=== PATIENT | female | born 1960 | race Caucasian/White ===

== ENCOUNTER → 2017-01-11 | Outpatient (CLI) | payer MEDICARE ==
[2017-01-11 10:37] VITALS: BP 130/72; PULSE 78; RESP 16; TEMP 98.1; BMI 40.1
[2017-01-11 11:58] LABS: CHCM 32.4; HCT 40.4 % (34.0-46.0); HDW 2.55; HGB 13.1 gm/dL (11.4-16.0); MCHC 32.3 g/dL (31.0-37.0); MCV 89.9 fL (80.0-100.0); Mean Platelet Volume 7.7; RDW 13.7 % (11.5-15.5)
[2017-01-11 12:07] LABS: ALT 30 U/L (9-52); AST 24 U/L (14-36); Alkaline Phosphatase 107 U/L (38-126); Anion Gap 12 mmol/L; Blood Urea Nitrogen 16 mg/dL (7-17); Calcium 9.5 mg/dL (8.4-10.2); Carbon Dioxide 28 mmol/L (22-30); Chloride 101 mmol/L (98-107); Glucose 95 mg/dL (74-99); Iron 61 ug/dL (37-170); Non-African American GFR(MDRD) >60 (>60 ml/min/1.73 sqM); Potassium 4.5 mmol/L (3.5-5.1); Sodium 141 mmol/L (137-145); Total Bilirubin 0.3 mg/dL (0.2-1.3); Total Protein 7.6 g/dL (6.3-8.2)
[2017-01-11 12:16] LABS: Total Iron Binding Capacity 346 ug/dL (265-497)
[2017-01-11 13:16] LABS: Vitamin B12 551 pg/mL (239-931)
[2017-01-11 13:21] LABS: Hemoglobin A1C 5.1 % (4.2-6.1)
--- NOTE | 2017-02-26 07:52 | P.PN ---
Progress Note - Text DATE OF SERVICE: 01/11/2017 CHIEF COMPLAINT: Bariatric assessment. HISTORY OF PRESENT ILLNESS: Eneida Cruz is a 56-year-old female with history of an adjustable gastric band. Since her band placement, she has had chronic troubles with atypical chest pain including severe gastroesophageal reflux disease. She also still has obstructive sleep apnea. Given the severity of her symptoms including gastroesophageal reflux disease, she is on toxic doses of Zantac including Prilosec. She presents with symptoms highly suspicious for slippage from adjustable gastric band. Now she presents for further evaluation and management. At her height of 5 foot 2 inches, her ideal body weight is 135 pounds. Her initial weight was 240 pounds. Today she comes in weighing 219 pounds. Maintained weight loss is 21 pounds. Percent excess weight loss is 20%. She has lost 4 pounds in 6 months. PAST MEDICAL HISTORY: 1. Morbid obesity. 2. Gastroesophageal reflux disease. 3. Hypertensive cardiomyopathy. 4. Chronic pain syndrome. 5. Asthma. 6. Hyperlipidemia. 7. Dyslipidemia. 8. Rheumatoid arthritis. 9. Anxiety. 10. Neuropathy. 11. Urinary urgency. 12. Congestive heart failure. 13. Depression. 14. Hypothyroidism. 15. Fibromyalgia. 16. History of acute respiratory distress syndrome. 17. History of avascular necrosis of the joints. 18. History of coronary artery disease. 19. Variant of angina. PAST SURGICAL HISTORY: 1. Appendectomy. 2. Back surgery. 3. Adjustable gastric band placement. 4. section. 5. Cholecystectomy. 6. Cardiac catheterization. 7. Hysterectomy. 8. Joint replacement. 9. Tonsillectomy. 10. Laminectomy. 11. Hemorrhoidectomy. 12. Total abdominal hysterectomy. 13. History of lipoma excision. 14. History of feeding tube placement. 15. Prior history of tracheostomy. 16. Left hip replacement. 17. Bilateral knee replacement. MEDICATIONS: 1. Vitamin E. 2. Ditropan XL. 3. Omeprazole. 4. Nitroglycerin. 5. Multivitamin. 6. Lopressor. 7. Synthroid. 8. Imdur. 9. Hydrochlorothiazide. 10. Garlic. 11. Prozac. 12. Cortisone. 13. Vitamin D. 14. Aspirin. 15. Ventolin inhaler. 16. Humira pen. 17. Xanax. ALLERGIES: 1. METHOTREXATE. 2. THIMEROSAL. REVIEW OF SYSTEMS: CONSTITUTIONAL: Present weight loss of 21 pounds. Highest weight of 240 pounds. Present weight of 219 pounds. [place] body weight of 135 pounds. Percent excess weight loss of 20%. She has lost 4 pounds in 6 months. Body mass index reduced from 44 down to 40.1. Total BMI point reduction of 4. GASTROINTESTINAL: Severe gastroesophageal reflux disease including epigastric abdominal pain. CARDIAC: She has had severe chest pain for which work-up has demonstrated negative cardiac, however, complications from adjustable gastric band was described from her operations controller. HEENT: No active problems with vision or hearing. She has mild dysphagia. ENDOCRINE: History of hypothyroidism. No reports of active diabetes type 1 or 2. RESPIRATORY: Prior history of ARDS. Also, prior history tracheostomy. No recent pneumonia. She does have asthma. MUSCULOSKELETAL: Has diffuse osteoarthritis, including multiple joint replacements including of the hip and knees. NEURO: No reports of recent stroke or seizure disorder. She does have chronic pain including from fibromyalgia. PSYCH: History of depression without active suicidal ideation. HEMATOLOGIC: No active blood thinners. No recent DVTs. PHYSICAL EXAM: VITAL SIGNS: 98.1, 78, 16, 130/72; 5 foot 2, 219 pounds. Body mass index of 40.1. ABDOMEN: Soft, tenderness along the epigastrium. No signs of cellulitis. GENERAL: Well-developed female in no acute distress. HEENT: No sclerae icterus. Extraocular movements grossly intact. Moist buccal mucosa. NECK: Supple without adenopathy. CHEST: Nonlabored respirations with equal bilateral excursions. CARDIOVASCULAR: Regular rate and rhythm. MUSCULOSKELETAL: No clubbing, cyanosis or present edema. NEURO: No focal or lateralizing signs. Cranial nerves 2 through 12 grossly within normal limits. PSYCH: Appropriate affect. Alert and oriented to person, place, and time. ASSESSMENT: 1. Morbid obesity due to excess caloric intake. 2. Body mass index reduced from 44 down to 40.1. 3. History of adjustable gastric band now with complications. 4. Risks of gastric band slippage with adjustable gastric band. 5. Worsening epigastric and left upper quadrant abdominal pain. 6. Severe chronic gastroesophageal reflux disease, exacerbated with adjustable gastric band. 7. Atypical chest pain secondary to complications from adjustable gastric band. 8. Congestive heart failure with unknown diastolic dysfunction. 9. Fibromyalgia. 10. Osteoarthritis of the bilateral knees secondary to morbid obesity. 11. Osteoarthritis of the hips. secondary to morbid obesity. 12. Rheumatoid arthritis. 13. Dyslipidemia. 14. Depression without suicidal ideation. 15. Left upper abdominal pain at port site. 16. Epigastric abdominal pain. 17. Complications from adjustable gastric band. PLAN: 1. Her symptoms are progressive with adjustable gastric band with findings and clinical suspicion of gastric slippage. Recommend removal of adjustable gastric band. 2. Deep venous thrombosis prophylaxis. 3. Antibiotic prophylaxis. 4. She has obtained cardiac risk assessment prior to surgical intervention. 5. With the severity of reflux disease, will reevaluate after band removal for which she may benefit from potential gastric bypass to follow. 6. Recommend bariatric metabolic panel. ADDENDUM: Bariatric metabolic panel was reviewed with hemoglobin normal at 13.1. Hemoglobin A1c was normal at 5.1. TSH was low at 0.152. Recommend close supervision of the thyroid level, otherwise, will proceed with removal of adjustable gastric band and all components.
== END | disposition home or self-care (01) ==
LOC: BARWHC3 09:29
PROVIDERS: ATTEND Surgery Plastic and Reconstructive Surgery
DX: Z01.818 Encounter for other preprocedural examination (principal); E89.1 Postprocedural hypoinsulinemia; D50.8 Other iron deficiency anemias; E44.0 Moderate protein-calorie malnutrition; E55.9 Vitamin D deficiency, unspecified; Z68.41 Body mass index [BMI] 40.0-44.9, adult; E11.9 Type 2 diabetes mellitus without complications
CPT/HCPCS: 84425; 80053; 82607; 82728; 83036; 82746; 83540; 83550; 84443; 85027; 82306; 36415; G0463; 99211

== ENCOUNTER 2017-01-24 09:37 | Inpatient (IN) | payer MEDICARE ==
[2017-01-22 08:42] VITALS: BMI 39.9
--- NOTE | 2017-01-24 07:51 | P.GSHP ---
History of Present Illness H&P Date: 01/24/17 DATE OF SERVICE: 01/24/2017 CHIEF COMPLAINT: Bariatric assessment. HISTORY OF PRESENT ILLNESS: Eneida Cruz is a 56-year-old female who has an adjustable gastric band for several years. She has had chronic abdominal pain from her adjustable gastric band including gastroesophageal reflux disease as well as intractable nausea and vomiting. She has clinical features consistent with gastric band slippage. She now presents with more troubles with swallowing. PAST MEDICAL HISTORY: 1. Morbid obesity. 2. Gastroesophageal reflux disease. 3. Hypertensive cardiomyopathy. 4. Chronic pain syndrome. 5. Asthma. 6. Hyperlipidemia. 7. Dyslipidemia. 8. Rheumatoid arthritis. 9. Anxiety. 10. Neuropathy. 11. Urinary urgency. 12. Congestive heart failure. 13. Depression. 14. Hypothyroidism. 15. Fibromyalgia. 16. History of acute respiratory distress syndrome. 17. History of avascular necrosis of the joints. 18. History of coronary artery disease. 19. Variant of angina. PAST SURGICAL HISTORY: 1. Appendectomy. 2. Back surgery. 3. Adjustable gastric band placement. 4. section. 5. Cholecystectomy. 6. Cardiac catheterization. 7. Hysterectomy. 8. Joint replacement. 9. Tonsillectomy. 10. Laminectomy. 11. Hemorrhoidectomy. 12. Total abdominal hysterectomy. 13. History of lipoma excision. 14. History of feeding tube placement. 15. Prior history of tracheostomy. 16. Left hip replacement. 17. Bilateral knee replacement. MEDICATIONS: 1. Vitamin E. 2. Ditropan XL. 3. Omeprazole. 4. Nitrostat. 5. Multivitamin. 6. MS Contin. 7. Lopressor. 8. Lidoderm. 9. Synthroid. 10. Imdur. 11. Hydrochlorothiazide. 12. Garlic. 13. Neurontin. 14. Prozac. 15. Vitamin D. 16. Cardizem. 17. Aspirin. 18. ( ) 19. Ventolin inhaler. 20. Humira. 21. Xanax. 22. Zantac. 23. Omeprazole. ALLERGIES: None reported. SOCIAL HISTORY: No active tobacco use. She is a former tobacco user. FAMILY HISTORY: Pertinent for congestive heart failure including hyperlipidemia and hypertension. REVIEW OF SYSTEMS: GASTROINTESTINAL: Severe gastroesophageal reflux disease including epigastric abdominal pain. CONSTITUTIONAL: Highest weight of 240 pounds. 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 HEENT: No active problems with vision or hearing. She has mild dysphagia. ENDOCRINE: History of hypothyroidism. No reports of active diabetes type 1 or 2. RESPIRATORY: Prior history of ARDS. Also, prior history tracheostomy. No recent pneumonia. She does have asthma. MUSCULOSKELETAL: Has diffuse osteoarthritis, including multiple joint replacements including of the hip and knees. NEURO: No reports of recent stroke or seizure disorder. She does have chronic pain including from fibromyalgia. PSYCH: History of depression without active suicidal ideation. HEMATOLOGIC: No active blood thinners. No recent DVTs. PHYSICAL EXAM: VITAL SIGNS: 98.2, 72, 13, 124/60, 5 foot 2, 217.5 pounds. Body mass 39.9. GENERAL: Well-developed female in no acute distress. ABDOMEN: Tender. Tenderness along the epigastrium. Port site also tender. HEENT: No sclerae icterus. Extraocular movements grossly intact. Moist buccal mucosa. NECK: Supple without adenopathy. CHEST: Nonlabored respirations with equal bilateral excursions. CARDIOVASCULAR: Regular rate and rhythm. MUSCULOSKELETAL: No clubbing, cyanosis or present edema. NEURO: No focal or lateralizing signs. Cranial nerves 2 through 12 grossly within normal limits. PSYCH: Appropriate affect. Alert and oriented to person, place, and time. ASSESSMENT: 1. Morbid obesity due to excess caloric intake. 2. Body mass index 39.9. 3. History of adjustable gastric band with complications. 4. Gastric band slippage with adjustable gastric band. 5. Worsening epigastric and left upper quadrant abdominal pain. 6. Severe chronic gastroesophageal reflux disease, exacerbated with adjustable gastric band. 7. Atypical chest pain secondary to complications from adjustable gastric band. 8. Congestive heart failure with unknown diastolic dysfunction. 9. Fibromyalgia. 10. Osteoarthritis of the bilateral knees secondary to morbid obesity. 11. Osteoarthritis of the hips. secondary to morbid obesity. 12. Rheumatoid arthritis. 13. Dyslipidemia. 14. Depression without suicidal ideation. 15. Left upper abdominal pain at port site. 16. Epigastric abdominal pain. PLAN: 1. Her clinical symptoms has been consistent with troubles with her adjustable gastric band. She is high risk for band slippage, including her presentation and persistent abdominal pain. 2. Giving her presentation and complications from adjustable gastric band, I strongly recommend urgent removal of her adjustable gastric band. 3. Benefits and risks of removal of her band including bleeding, infection, injury to the stomach and need for fluid aspiration and abdominal wall seroma was also reviewed. 4. Will need deep venous thrombosis prophylaxis. 5. Antibiotic prophylaxis per bariatric protocol. Past Medical History Past Medical History: Fibromyalgia, GERD/Reflux, Hyperlipidemia, Hypertension, Rheumatoid Arthritis (RA), Thyroid Disorder Additional Past Medical History / Comment(s): hypothroidism, ARDS, avascular necrosis of joints, trial spinal stimulator, occasional PVCs, 30% blockage of artery, Prizmetal varient angina, History of Any Multi-Drug Resistant Organisms: None Reported Past Surgical History: Appendectomy, Back Surgery, Bariatric Surgery, Section, Cholecystectomy, Heart Catheterization, Hysterectomy, Joint Replacement , Orthopedic Surgery, Tonsillectomy Additional Past Surgical History / Comment(s): lamanectomy, hemrroidectomy, bilateral removal of ovaries, large lypoma removed from under left arm, cardiac last in 2012, lapband, feeding tube and tarch placed and removed, bilateral knee and left hip replacement Past Anesthesia/Blood Transfusion Reactions: No Reported Reaction Past Psychological History: Depression Smoking Status: Former smoker Past Alcohol Use History: Occasional Additional Past Alcohol Use History / Comment(s): QUIT SMOKING 30 YRS AGO Past Drug Use History: None Reported - Past Family History Father Family Medical History: Congestive Heart Failure (CHF), Hyperlipidemia, Hypertension Additional Family Medical History / Comment(s): Passed from CHF in 2014 Mother Family Medical History: CVA/TIA, Fibromyalgia, Hypertension, Thyroid Disorder Additional Family Medical History / Comment(s): depression, hypothroidism, Medications and Allergies Home Medications Medication Instructions Recorded Confirmed Type ALPRAZolam [Xanax] 1 mg PO HS PRN 01/20/16 01/22/17 History Adalimumab [Humira Pen] 40 mg SQ [id number] 01/20/16 01/22/17 History Albuterol Inhaler [Ventolin Hfa 1 - 2 puff INHALATION Q6HR PRN 01/20/16 History Inhaler] Aspirin [Adult Low Dose Aspirin EC] 81 mg PO DAILY 01/20/16 01/22/17 History Diltiazem Cd [Cardizem Cd] 240 mg PO DAILY 01/20/16 01/22/17 History FLUoxetine HCL [PROzac] 40 mg PO BID 01/20/16 01/22/17 History Hydrochlorothiazide 25 mg PO DAILY 01/20/16 01/22/17 History Isosorbide Mononitrate ER [Imdur] 60 mg PO HS 01/20/16 01/22/17 History Levothyroxine Sodium [Synthroid] 175 mcg PO DIRECTED 01/20/16 01/22/17 History Metoprolol Tartrate [Lopressor] 25 mg PO HS 01/20/16 01/22/17 History Multivitamins, Thera [Multivitamin] 1 tab PO DAILY 01/20/16 01/22/17 History Nitroglycerin Sl Tabs [Nitrostat] 0.4 mg SUBLINGUAL Q5M PRN 01/20/16 01/22/17 History Oxybutynin Xl [Ditropan Xl] 5 mg PO BID 01/20/16 01/22/17 History Alirocumab [Praluent Pen] 75 mg SQ DIRECTED 06/07/16 01/22/17 History Cholecalciferol [Vitamin D3] 5,000 unit PO DAILY 06/28/16 01/22/17 History Ergocalciferol [Vitamin D2] 50,000 unit PO DIRECTED 06/28/16 01/22/17 History Garlic 1 each PO DAILY 06/28/16 01/22/17 History Vitamin E 1,000 unit PO DAILY 06/28/16 01/22/17 History HYDROcodone/APAP 10-325MG [Mcnabb 0.5 tab PO Q8H PRN 01/11/17 01/22/17 History 10-325] Ibuprofen [Motrin] 200 - 800 mg PO Q6HR PRN 01/11/17 01/22/17 History Allergies Allergy/AdvReac Type Severity Reaction Status Date / Time methotrexate AdvReac Anaphylaxis Verified 01/22/17 08:35 thimerosal AdvReac Anaphylaxis Verified 01/22/17 08:35
[~2017-01-24 09:37] MED LIST: BUPIVACAINE LIPOSOME/PF 1.3% 20 ML, BUPIVACAIN-EPI 0.5%-1:200,000 25 ML, SODIUM CHLORID... MISCELLANE ONE; CHLORHEXIDINE GLUCONATE 15 ML CUP MUCOUS MEM ONE; DEXAMETHASONE SOD PHOSPHATE 10 MG/ML 1 ML VIAL IV ONE; ENOXAPARIN 40 MG/0.4 ML SYRINGE SQ STA; MIDAZOLAM 2 MG/2 ML VIAL IV PRN; ONDANSETRON 4 MG/2 ML VIAL IVP ONE; PANTOPRAZOLE 40 MG/10 ML VIAL IV STA; ceFAZolin 2 GM in SODIUM CHLORIDE 0.9% 100 ML IVPB ONE
[2017-01-24 10:44] VITALS: TEMP 97.9
[2017-01-24] MEDS ORDERED: LIDOCAINE 1% 20 ML VIAL (10MG/ML) FOR IV START INTRADERMA ONE (10:50)
[2017-01-24] MEDS: LACTATED RINGERS 1,000 ML IV SCH ×4 (10:52→17:10)
[2017-01-24] MEDS ORDERED: ePHEDrine 50 MG/ML 1 ML AMP ONE (12:24)
[2017-01-24] MEDS ORDERED: SUCCINYLCHOLINE CHLORIDE 100 MG/5 ML SYR IV ONE (12:24)
[2017-01-24] MEDS ORDERED: PROPOFOL 10 MG/ML 20 ML VIAL IV ONE (12:24)
[2017-01-24] MEDS ORDERED: LIDOCAINE 1% INJ 10MG/ML (20 ML MDV) ONE (12:24)
[2017-01-24] MEDS ORDERED: fentaNYL (PF) 50 MCG/ML 2 ML AMP ONE (12:24)
[2017-01-24] MEDS ORDERED: GLYCOPYRROLATE 0.2 MG/ML 2 ML VIAL ONE (12:24)
[2017-01-24] MEDS ORDERED: HYDROmorphone (PF) 1 MG/ML ONE (12:24)
[2017-01-24] MEDS ORDERED: NEOSTIGMINE 1 MG/ML 10 ML VIAL ONE (12:24)
[2017-01-24] MEDS ORDERED: ROCURONIUM BROMIDE 10 MG/ML 10 ML VIAL IV ONE (12:24)
[2017-01-24] MEDS ORDERED: MIDAZOLAM 2 MG/2 ML VIAL ONE (12:24)
[2017-01-24] MEDS ORDERED: MELATONIN 3 MG TABLET ONE (12:24)
[2017-01-24] MEDS ORDERED: LACTATED RINGERS 1,000 ML IV ONE (12:55)
--- NOTE | 2017-01-24 14:03 | P.PCN ---
Date of Procedure: 01/24/17 Preoperative Diagnosis: complications gastric band, morbid obesity Postoperative Diagnosis: same, GERD, gastric ulcer, gastric prolapse posterior Procedure(s) Performed: Laparoscopic removal of adjustable gastric band and all components, intraoperative esophagogastro duodenoscopy Anesthesia: MELISSAA, local Surgeon: Sarai Sy Estimated Blood Loss (ml): 20 Pathology: other (Band and all components) Condition: stable Disposition: same day Operative Findings: Multiple gastric ulcers antrum
[2017-01-24] MEDS ORDERED: PROMETHAZINE 25 MG TAB PO PRN (14:05)
[2017-01-24] MEDS ORDERED: HYDROmorphone 1 MG/ML 1 ML SYRINGE IVP PRN (14:05)
[2017-01-24] MEDS ORDERED: NALOXONE 0.4 MG/ML 1 ML VIAL IV PRN (14:05)
[2017-01-24] MEDS ORDERED: HYDROcodone/APAP 5-325MG 1 EACH TAB PO PRN (14:05)
[2017-01-24] MEDS ORDERED: ONDANSETRON 4 MG/2 ML VIAL IVP PRN (14:05)
[2017-01-24] MEDS: HYDROmorphone 1 MG/ML 1 ML SYRINGE IVP PRN ×2 (14:50→15:04)
[2017-01-24 16:50] VITALS: BP 106/67; PULSE 97; RESP 16
--- NOTE | 2017-01-26 08:42 | P.DS ---
Providers Date of admission: 01/24/17 09:37 Expected date of discharge: 01/24/17 Attending physician: Sarai Sy Primary care physician: Silva Dennis - Discharge Diagnosis(es) (1) Morbid obesity due to excess calories Status: Chronic (2) BMI 40.0-44.9, adult Status: Chronic (3) Other complications of gastric band procedure Status: Chronic (4) Reflux esophagitis Status: Chronic (5) Hypertensive heart disease with CHF (congestive heart failure) Status: Acute (6) Gastric ulcer requiring drug therapy Status: Acute Hospital Course: 1. Morbid obesity due to excess caloric intake. 2. Body mass index 39.9. 3. History of adjustable gastric band with complications. 4. Gastric band slippage with adjustable gastric band. 5. Worsening epigastric and left upper quadrant abdominal pain. 6. Severe chronic gastroesophageal reflux disease, exacerbated with adjustable gastric band. 7. Atypical chest pain secondary to complications from adjustable gastric band. 8. Congestive heart failure with unknown diastolic dysfunction. 9. Fibromyalgia. 10. Osteoarthritis of the bilateral knees secondary to morbid obesity. 11. Osteoarthritis of the hips. secondary to morbid obesity. 12. Rheumatoid arthritis. 13. Dyslipidemia. 14. Depression without suicidal ideation. 15. Left upper abdominal pain at port site. 16. Epigastric abdominal pain. HISTORY OF PRESENT ILLNESS: Eneida Cruz is a 56-year-old female who has an adjustable gastric band for several years. She has had chronic abdominal pain from her adjustable gastric band including gastroesophageal reflux disease as well as intractable nausea and vomiting. She has clinical features consistent with gastric band slippage. She now presents with more troubles with swallowing. Pertinent Studies: None. Procedures: 1. Laparoscopic removal of adjustable gastric band and all components. 2. Intraoperative esophagogastro duodenoscopy Patient Condition at Discharge: Stable Plan - Discharge Summary Discharge Medication List ALPRAZolam [Xanax] 1 mg PO HS PRN 01/20/16 [History] Adalimumab [Humira Pen] 40 mg SQ [id number] 01/20/16 [History] Albuterol Inhaler [Ventolin Hfa Inhaler] 1 - 2 puff INHALATION Q6HR PRN [History] Aspirin [Adult Low Dose Aspirin EC] 81 mg PO DAILY 01/20/16 [History] Diltiazem Cd [Cardizem Cd] 240 mg PO DAILY 01/20/16 [History] FLUoxetine HCL [PROzac] 40 mg PO BID 01/20/16 [History] Hydrochlorothiazide 25 mg PO DAILY 01/20/16 [History] Isosorbide Mononitrate ER [Imdur] 60 mg PO HS 01/20/16 [History] Levothyroxine Sodium [Synthroid] 175 mcg PO DIRECTED 01/20/16 [History] Metoprolol Tartrate [Lopressor] 25 mg PO HS 01/20/16 [History] Multivitamins, Thera [Multivitamin] 1 tab PO DAILY 01/20/16 [History] Nitroglycerin Sl Tabs [Nitrostat] 0.4 mg SUBLINGUAL Q5M PRN 01/20/16 [History] Oxybutynin Xl [Ditropan Xl] 5 mg PO BID 01/20/16 [History] Cholecalciferol [Vitamin D3] 5,000 unit PO DAILY 06/28/16 [History] Garlic 1 each PO DAILY 06/28/16 [History] Omeprazole 40 mg PO [id number]-[id number] #90 cap 06/28/16 [Rx] Vitamin E 1,000 unit PO DAILY 06/28/16 [History] Follow up Appointment(s)/Referral(s): Sarai Sy MD [STAFF PHYSICIAN] - 01/31/17 (bariatric-FOLLOW UP WITH DR SY IN [facility] ON January AT ) Patient Instructions/Handouts: Exploratory Laparoscopy (DC), Abdominal Binder ( DC) Activity/Diet/Wound Care/Special Instructions: Diet as tolerated. Wear an abdominal binder at all times except for showering. REST TODAY, NO DRIVING FOR THE NEXT COUPLE OF DAYS, DRINK LOTS OF FLUIDS, WALK AROUND THE HOUSE SEVERAL TIMES A DAY, DERMABOND INSTRUCTION SHEET GIVEN TO PT/ FAMILY NO HEAVY LIFTING, BENDING, OR STRAINING. Discharge Disposition: HOME SELF-CARE
--- NOTE | 2017-02-12 13:25 | P.OP ---
Date of Procedure: 01/24/17 Description of Procedure: SURGEON: FAITH VARGAS MD SITE INTERPRETER: NONE. PREOPERATIVE DIAGNOSES: 1. Morbid obesity due to excess caloric intake. 2. Body mass index 39.9. 3. History of adjustable gastric band with complications. 4. Gastric band slippage with adjustable gastric band. 5. Worsening epigastric and left upper quadrant abdominal pain. 6. Severe chronic gastroesophageal reflux disease, exacerbated with adjustable gastric band. 7. Atypical chest pain secondary to complications from adjustable gastric band. 8. Congestive heart failure with unknown diastolic dysfunction. 9. Fibromyalgia. 10. Osteoarthritis of the bilateral knees secondary to morbid obesity. 11. Osteoarthritis of the hips, secondary to morbid obesity. 12. Rheumatoid arthritis. 13. Dyslipidemia. 14. Depression without suicidal ideation. 15. Left upper abdominal pain at port site. 16. Epigastric abdominal pain. POSTOPERATIVE DIAGNOSES: 1. Morbid obesity due to excess caloric intake. 2. Body mass index 39.9. 3. History of adjustable gastric band with complications. 4. Gastric band slippage with adjustable gastric band. 5. Worsening epigastric and left upper quadrant abdominal pain. 6. Severe chronic gastroesophageal reflux disease, exacerbated with adjustable gastric band. 7. Atypical chest pain secondary to complications from adjustable gastric band. 8. Congestive heart failure with unknown diastolic dysfunction. 9. Fibromyalgia. 10. Osteoarthritis of the bilateral knees secondary to morbid obesity. 11. Osteoarthritis of the hips, secondary to morbid obesity. 12. Rheumatoid arthritis. 13. Dyslipidemia. 14. Depression without suicidal ideation. 15. Left upper abdominal pain at port site. 16. Epigastric abdominal pain. 17. Gastroesophageal reflux disease. 18. Gastric ulcer. 19. Gastric prolapse, posterior. OPERATION: 1. Laparoscopic removal of adjustable gastric band and all components. 2. Intraoperative esophagogastroduodenoscopy with cold forceps biopsies along antrum. 3. Placement of quarter inch Jenkins drain along port extraction site. ANESTHESIA: General with 85 mL Exparel Sensorcaine with epinephrine and normal saline mixture. ESTIMATED BLOOD LOSS: 20 mL SPECIMENS REMOVED: Adjustable gastric band and components. COMPLICATIONS: None. INDICATIONS: The patient is a 56-year-old female who presents with prior history of adjustable gastric band. She reports epigastric abdominal pain including severe and uncontrolled gastroesophageal reflux disease and atypical chest pain from her adjustable gastric band. Clinical features were consistent with gastric prolapse. Surgical options were described including revision versus removal of her band. As she has persistent pain and discomfort from her band, she had elected for removal of the adjustable gastric band and port including all components. Benefits and risks of the procedure were described. Informed consent was obtained. DESCRIPTION: The patient was brought into the operating room and laid in supine position. Preoperatively she had received Peridex oral solution. DVT prophylaxis was administered along with bilateral SCDs and heparin. Patient was brought into the operating room, transferred a split-leg table. After general induction, which was uncomplicated, the abdomen was prepped and draped in standard sterile fashion. The abdomen was prepped and draped in standard sterile fashion using ChloraPrep as well as Ioban draping. Prior to incision, a timeout protocol was confirmed with the surgical team regarding the patient's name, procedure to be performed, including preoperative medications. A transverse incision was made approximately 15 cm distal to the xiphoid off to the left of the midline from his prior cicatrix. A 0 degree 5 mm trocar entry was performed and entered into the peritoneal cavity. The abdomen was insufflated to 15 mmHg pressure, which she tolerated well. Diagnostic laparoscopy demonstrated no hepatomegaly or fatty liver disease. The port was palpated at the lateral left costal margin and the band was found underneath the liver. A 15 mm port was placed along the left costal margin. Next a 5 mm port was placed at the left midclavicular line. The patient was placed in steep reverse Trendelenburg position. The port was followed with its tubing to the actual band. The gastrohepatic ligament was scarred from her prior surgery. The posterior portion of the stomach was prolapsed around the ALLERGAN band. Using electro- Bovie cautery, the cicatrix of the port was incised. The band was then freed. The band was unbuckled and cut. The tubing was cut approximately 5 cm distal to the actual adapter. The band was removed in total without injury to the stomach. Hemostasis was excellent. The port was removed from the abdominal cavity via the 15 mm port. Next, attention was brought to the abdominal wall where the lap band port was palpated. At the midclavicular trocar incision, the incision was extended laterally with a #11 blade. Skin was localized with anesthetic. Electro -Bovie cautery was used to enter the capsule around the port. The sutures were cut and the port was removed in total along with the tubing. The capsule of the port was also excised including all sutures. Diagnostic laparoscopy demonstrated complete removal of all foreign body. I then went to the head of the bed to perform intraoperative esophagogastroduodenoscopy to evaluate for gastritis and any full thickness injury to the stomach. An Olympus gastroscope was passed from the posterior oropharynx down to the esophagus, where the squamocolumnar junction was found LA grade A erosive esophagitis, chronic changes. The stomach was entered and no bile reflux was found. Chronic gastritis was found along the antrum with gastric ulcers. No duodenitis or duodenal ulcers was found. Retroflexion of the scope confirmed a Hill grade 3 lower esophageal valve. No full-thickness erosion from the band was encountered. No blood was found within the stomach. Mild gastritis with identified and cold forceps biopsies obtained along the antrum. The stomach was desufflated. The patient tolerated the procedure well. No evidence of leak was encountered from the removal of the band. I then went back to the patient's bedside after re-scrubbing. All instruments and pneumoperitoneum were evacuated from the abdominal cavity. The port extraction site was hemostatic. The port site was irrigated using normal saline and hydrogen peroxide approximately, 50 mL. The skin was closed in layers using 0-Vicryl for the deep dermis and subcutaneous tissue. The 15 mm port fascia was over sewn using 0-Vicryl in [place]. The rest of the incisions were reapproximated using 4-0 Monocryl in a subcuticular interrupted fashion. Optifoam dressing was placed over the port extraction site along the left upper quadrant to decrease risk for surgical site infection. At the end of the procedure, needle, sponge and instrument count was verified correct by the fingerprint technician. The patient had tolerated the procedure well. An abdominal binder was placed. The patient was transferred to Postanesthesia Care Unit in stable condition. Postoperative findings were discussed with the patient's family who were pleased with the level of care. FINDINGS: 1. Posterior gastric prolapse. 2. LA grade A erosive esophagitis chronic. 3. Hill grade 3 lower esophageal valve. 4. Peritoneal adhesions, lower midline from previous surgery. 5. Gastric ulcers along the antrum.
== END 2017-01-24 17:31 | disposition home or self-care (01) | DRG 988 ==
LOC: 2ORWHC 09:37
PROVIDERS: ADMIT Surgery Plastic and Reconstructive Surgery; ATTEND Surgery Plastic and Reconstructive Surgery
PROC: 0DB68ZX Excision of Stomach, Via Natural or Artificial Opening Endoscopic, Diagnostic (ICD-10-PCS; principal; 2017-01-24 11:00)
PROC: 0DP64CZ Removal of Extraluminal Device from Stomach, Percutaneous Endoscopic Approach (ICD-10-PCS; principal; 2017-01-24 11:00)
DX: K95.09 Other complications of gastric band procedure (principal); I43 Cardiomyopathy in diseases classified elsewhere; Z68.41 Body mass index [BMI] 40.0-44.9, adult; I11.0 Hypertensive heart disease with heart failure; I50.9 Heart failure, unspecified; E66.01 Morbid (severe) obesity due to excess calories; K22.10 Ulcer of esophagus without bleeding; E03.9 Hypothyroidism, unspecified; E78.5 Hyperlipidemia, unspecified; F32.9 Major depressive disorder, single episode, unspecified; G89.4 Chronic pain syndrome; I25.10 Atherosclerotic heart disease of native coronary artery without angina pectoris; J45.909 Unspecified asthma, uncomplicated; K21.9 Gastro-esophageal reflux disease without esophagitis; K25.9 Gastric ulcer, unspecified as acute or chronic, without hemorrhage or perforation; M06.9 Rheumatoid arthritis, unspecified; M16.0 Bilateral primary osteoarthritis of hip; M17.0 Bilateral primary osteoarthritis of knee; M79.7 Fibromyalgia; Y83.1 Surgical operation with implant of artificial internal device as the cause of abnormal reaction of the patient, or of later complication, without mention of misadventure at the time of the procedure; Z96.642 Presence of left artificial hip joint; Z96.653 Presence of artificial knee joint, bilateral; K21.0 Gastro-esophageal reflux disease with esophagitis; K29.50 Unspecified chronic gastritis without bleeding; K66.0 Peritoneal adhesions (postprocedural) (postinfection); Z87.891 Personal history of nicotine dependence; Z82.49 Family history of ischemic heart disease and other diseases of the circulatory system; Z79.899 Other long term (current) drug therapy; Z81.8 Family history of other mental and behavioral disorders; Z79.82 Long term (current) use of aspirin

== ENCOUNTER → 2017-01-31 | Outpatient (CLI) | payer MEDICARE ==
[2017-01-31 13:05] VITALS: BP 147/70; PULSE 83; RESP 16; TEMP 97.8; BMI 40.1
--- NOTE | 2017-03-03 09:24 | PN ---
DATE OF SERVICE: 01/31/2017. CHIEF COMPLAINT: Follow-up band removal. HISTORY OF PRESENT ILLNESS: Eneida Cruz is a 56-year-old female who is status post removal of adjustable gastric band one week ago. She is now postop day #7. She reports her reflux is improved. No reports of abdominal pain. At her height of 5 feet 2 inches, her ideal body weight is 135 pounds. Highest weight was 240 pounds. Today she comes in 219 pounds. She has maintained a 20 pound weight loss. Body mass index is reduced from 44 down to 40.1. Total BMI point reduction is 3.85. PHYSICAL EXAM: VITAL SIGNS: 97.8, 83, 16, 147/70; 5 foot 2, 219 pounds. Body mass index of 40.1. ABDOMEN: Incision clean, dry and intact. No signs of cellulitis. Abdominal binder placed. GENERAL: Well-developed female in no acute distress. HEENT: No sclerae icterus. Extraocular movements grossly intact. Moist buccal mucosa. NECK: Supple without adenopathy. CHEST: Nonlabored respirations with equal bilateral excursions. CARDIOVASCULAR: Regular rate and rhythm. MUSCULOSKELETAL: No clubbing, cyanosis or present edema. NEURO: No focal or lateralizing signs. Cranial nerves 2 through 12 grossly within normal limits. PSYCH: Appropriate affect. Alert and oriented to person, place, and time. ASSESSMENT: 1. Morbid obesity due to excess calories. 2. Complications from adjustable gastric band. 3. History of bariatric procedure. 4. Gastroesophageal reflux disease, now improved. PLAN: 1. Clinically she is doing fairly well. Recommend continuing her abdominal binder. 2. Reflux is improved. 3. Recommend complete recovery prior to evaluation for another bariatric procedure. [facility]
== END | disposition home or self-care (01) ==
LOC: BARWHC3 11:17
PROVIDERS: ATTEND Surgery Plastic and Reconstructive Surgery
DX: Z48.815 Encounter for surgical aftercare following surgery on the digestive system (principal); Z68.41 Body mass index [BMI] 40.0-44.9, adult; E66.01 Morbid (severe) obesity due to excess calories; T85.9XXA Unspecified complication of internal prosthetic device, implant and graft, initial encounter; Z98.84 Bariatric surgery status; K21.9 Gastro-esophageal reflux disease without esophagitis
CPT/HCPCS: 99211

== ENCOUNTER → 2017-04-12 | Outpatient (CLI) | payer MEDICARE ==
--- NOTE | 2017-04-12 18:48 | CONS ---
DATE OF CONSULTATION: 04/12/2017 This patient is a 56-year-old lady who has been evaluated in the sleep center for possibility of obstructive sleep apnea-hypopnea syndrome as a part of preparation for possible gastric bypass surgery. HISTORY OF PRESENT ILLNESS/SLEEP-WAKE EVALUATION: Patient's usual sleep schedule is from around 1 a.m. until 7 or 8 a.m. Usually she falls asleep well. Sometimes she may need to take Xanax to help her with falling asleep. She has a TV set in bedroom. She has loud snoring and she wakes up from sleep up to 4 times with nocturia. Positive history of grinding teeth and heartburn. In the morning patient wakes up tired, falling asleep during the day, has problems with memory, irritability, depression, sexual dysfunction. [place] Sleepiness Scale significantly increased to 12. Past medical history is positive for: 1. Hypertension. 2. 30% narrowing of one the coronary arteries. 3. Hypothyroidism. 4. Depression. 5. Urinary incontinence. 6. GERD. 7. Rheumatoid arthritis. 8. Fibromyalgia. 9. Avascular necrosis of left hip. 10. Cardiac arrest and respiratory arrest possibly related to reaction on methotrexate. PAST SURGICAL HISTORY: 1. Cholecystectomy. 2. . 3. Total hysterectomy. 4. Laminectomy. 5. Hemorrhoidectomy. 6. Oophorectomy. 7. Left axilla lump removal in 1999. 8. Arthroscopic bilateral knee surgery. 9. Lap band surgery in 2006. 10. Tracheostomy. 11. Bilateral total knee replacement. 12. Left hip total replacement in 2013. SOCIAL HISTORY: Positive for smoking in the past; quit 30 years ago. Alcohol consumption quite often, up to several drinks with dinner. MEDICATIONS: 1. Synthroid. 2. Cardizem CD. 3. Prozac. 4. Imdur. 5. Oxybutynin. 6. Lopressor. 7. Xanax. 8. Hydrochlorothiazide. 9. Aspirin. 10. Vitamin D. 11. Albuterol on p.r.n. basis. FAMILY HISTORY: Hypertension, angina, heart problems, hyperlipidemia, stroke, fibromyalgia, arthritis, snoring, pneumonia, acid reflux, ulcers, thyroid problems. PHYSICAL EXAMINATION: This is a pleasant 56-year-old lady without distress. VITAL SIGNS: BP 136/74, HR 77, RR 16. Height 5 feet 3 inches. Weight 217. BMI 38.4. Neck 15-1/2 inches in circumference. Temperature 97.7. Oxygen saturation at room air 96%. HEENT: PERRLA, EOMI. Evaluation of oropharynx showed tongue protrudes midline; moderately low position of soft palate. NECK: Supple. No JVD. Thyroid is not palpable. Scar on neck from tracheostomy. LUNGS: Clear to percussion and to auscultation. Good air exchange. No wheezing or rhonchi. HEART: S1, S2 regular. No murmurs, gallops or rubs. ABDOMEN: Obese. EXTREMITIES: No clubbing or cyanosis. VP OF PRODUCT: Awake, alert, and oriented x3. Cranial nerves 2 to 7 intact. There is no fasciculation or atrophy noted. No focal deficits observed. IMPRESSION: 1. Loud snoring, multiple awakenings from sleep, sleepiness during the day; possible obstructive sleep apnea-hypopnea syndrome. 2. Obesity; body mass index of 38.4. 3. Hypothyroidism. 4. History of coronary artery disease. 5. Hypertension. 6. Depression. 7. Urinary incontinence. 8. Back pain. 9. Status post back surgery. 10. Gastroesophageal reflux disease. 11. Status post tracheostomy. 12. Rheumatoid arthritis. 13. Reaction on methotrexate with cardiac arrest and respiratory arrest. History of reaction on methotrexate? 14. Status post left hip avascular necrosis. 15. Status post total left hip replacement. 16. Status post bilateral knee replacement. 17. Status post total hysterectomy. 18. Status post laminectomy. 19. Status post hemorrhoidectomy. 20. Status post lap band surgery in 2006. 21. Status post cholecystectomy. 22. Status post section. PLAN: 1. Polysomnography for evaluation of patient's breathing during sleep. 2. CPAP/BiPAP titration if sleep study confirms obstructive sleep apnea-hypopnea syndrome. 3. Preferable position during sleep on the side. 4. No driving if patient feels any sleepiness. Patient is aware of civil and criminal liability for unsafe driving. 5. I will see patient for follow-up visit to explain results of the testing and following plan. Thank you very much for referring this patient for consultation. Sincerely, Lyndon Rios MD, PhD, FAASM. Diplomat of [employer] [employer], Sleep Medicine Board by [employer], [place] [employer]
== END | disposition home or self-care (01) ==
LOC: SLEEP 13:42
PROVIDERS: ATTEND Internal Medicine
DX: Z01.818 Encounter for other preprocedural examination (principal); R06.83 Snoring; E66.9 Obesity, unspecified; Z68.38 Body mass index [BMI] 38.0-38.9, adult; E03.9 Hypothyroidism, unspecified; I25.10 Atherosclerotic heart disease of native coronary artery without angina pectoris; I10 Essential (primary) hypertension; F32.9 Major depressive disorder, single episode, unspecified; R32 Unspecified urinary incontinence; M54.9 Dorsalgia, unspecified; K21.9 Gastro-esophageal reflux disease without esophagitis; M06.9 Rheumatoid arthritis, unspecified; Z96.642 Presence of left artificial hip joint; Z96.653 Presence of artificial knee joint, bilateral; Z98.84 Bariatric surgery status; Z79.899 Other long term (current) drug therapy; Z87.891 Personal history of nicotine dependence; Z72.89 Other problems related to lifestyle
CPT/HCPCS: 99211

== ENCOUNTER → 2018-11-21 | Outpatient (CLI) | payer MEDICARE ==
--- NOTE | 2018-11-21 15:01 | SFUN ---
SLEEP CENTER FOLLOW UP NOTE DATE OF SERVICE: 11/21/2018 A 58-year-old lady who has been followed in the Sleep Center for treatment of obstructive sleep apnea-hypopnea syndrome. The patient has been diagnosed with obstructive sleep apnea-hypopnea syndrome in 2017. At that time, apnea-hypopnea index was 14.8. Subsequently, patient was started on treatment with CPAP. For about 7 months patient stopped using her CPAP equipment. She believes that after starting to do more regular exercise, she sleeps better and does not have any significant problems with her sleep. [place] Sleepiness Scale today is 7. The patient did not significantly change her weight since the time when she had diagnostic sleep study. MEDICATIONS: Cardizem, Prozac, Imdur, metoprolol, oxybutynin, vitamin D, Synthroid, melatonin, hydrochlorothiazide, Albuterol, Crestor. PHYSICAL EXAM: Patient in no distress, BP 127/79, HR 68, RR 16, height 5, 3 inches, weight 216, body mass index 38.2, temperature 97.5, oxygen saturation at room air 95%. OROPHARYNX: Low position of soft palate. ABDOMEN: Slightly distended. Neck Supple, no JVD. Thyroid is not palpable. LUNGS Clear to percussion and to auscultation. Good air exchange. No wheezing or rhonchi. HEART S1, S2 regular. No murmurs, gallops, or rubs. EXTREMITIES No clubbing or cyanosis. POWER TRANSFORMER REPAIR SUPERVISOR Awake, alert, and oriented X3. Cranial nerves 2 to 7 intact. There is no fasciculation or atrophy. noted. No focal deficits observed. IMPRESSION: 1. Patient continues to snore. 2. Low position of soft palate. 3. Obstructive sleep apnea-hypopnea syndrome. 4. Obesity, body mass index 38.2. 5. Hypothyroidism. 6. History of coronary artery disease. 7. Hypertension. 8. History of depression. 9. History of urinary incontinence. 10.History of back pain. 11.History of rheumatoid arthritis. 12.Status post bilateral knee replacement. 13.Status post total hysterectomy. 14.Status post splenectomy. 15.Status post hemorrhoidectomy. 16.Status post lap band surgery. 17.Status post cholecystectomy. 18.Status post . PLAN: 1. We will do home sleep apnea test to re-evaluate the patient breathing at the present time. 2. Following plan after reviewing sleep study. 3. Losing weight. 4. Sleep hygiene with regular time in bed for at least 8 hours. 5. No driving if feeling any sleepiness. Thank you very much for allowing me to participate in the management of your patient. Sincerely, Lyndon Rios MD, PhD, FAASM Diplomat of [employer] Noteman of [facility] [place] MMODL / IJN: [id number] /
== END ==
LOC: SLEEP 13:12
PROVIDERS: ATTEND Internal Medicine
DX: G47.33 Obstructive sleep apnea (adult) (pediatric) (principal); E66.9 Obesity, unspecified; E03.9 Hypothyroidism, unspecified; I25.10 Atherosclerotic heart disease of native coronary artery without angina pectoris; I10 Essential (primary) hypertension; F32.9 Major depressive disorder, single episode, unspecified; R32 Unspecified urinary incontinence; M54.9 Dorsalgia, unspecified; M06.9 Rheumatoid arthritis, unspecified; Z96.653 Presence of artificial knee joint, bilateral; Z90.710 Acquired absence of both cervix and uterus; Z90.89 Acquired absence of other organs; Z90.49 Acquired absence of other specified parts of digestive tract; Z98.890 Other specified postprocedural states; Z68.38 Body mass index [BMI] 38.0-38.9, adult; Z98.84 Bariatric surgery status

== ENCOUNTER → 2019-01-02 | Outpatient (CLI) | payer MEDICARE ==
--- NOTE | 2019-01-02 14:41 | SFUN ---
SLEEP CENTER FOLLOW UP NOTE DATE OF SERVICE: 01/02/2019 A 58-year-old lady who has been followed in the Sleep Center to discuss results of recent home sleep apnea test and following plan. Results of home sleep apnea test have been discussed with the patient and the family in detail. Sleep study showed 3 obstructive apneas, 4 central apneas, and 52 hypopneas with total apnea-hypopnea index 10.2, and oxygen desaturation to 83%. Pulse rate varied between 56 and 80. Subsequently, patient has mild obstructive sleep apnea-hypopnea syndrome, but the home sleep apnea test may underestimate severity of respiratory abnormalities. [place] Sleepiness Scale today is 6, which is in normal range. MEDICATIONS: Prozac, Cardizem, oxybutynin, Tumeric, Imdur, metoprolol, Crestor, melatonin, multivitamins, Amitiza, Synthroid. PHYSICAL EXAM: Patient in no distress, BP 127/67, HR 66, RR 16, weight 220.8 pounds, temperature 97.9, oxygen saturation at room air 94%. OROPHARYNX: Low position of soft palate. ABDOMEN: Obese. Neck Supple, no JVD. Thyroid is not palpable. LUNGS Clear to percussion and to auscultation. Good air exchange. No wheezing or rhonchi. HEART S1, S2 regular. No murmurs, gallops, or rubs. EXTREMITIES No clubbing or cyanosis. CLIENT SERVICES ACCOUNT MANAGER Awake, alert, and oriented X3. Cranial nerves 2 to 7 intact. There is no fasciculation or atrophy. noted. No focal deficits observed. IMPRESSION: 1. Mild obstructive sleep apnea-hypopnea syndrome by results of home sleep apnea test. 2. History of coronary artery disease. 3. Hypertension. 4. History of depression. 5. History of urinary incontinence. 6. Hypothyroidism. 7. History of rheumatoid arthritis. 8. Status post bilateral knee replacement. 9. Status post total hysterectomy. 10.Status post lap band surgery. 11.Status post cholecystectomy. 12.Status post hemorrhoidectomy. 13.Status post . PLAN: 1. Patient will restart to use CPAP equipment and will use it every night for the whole night. 2. Patient had difficulties with nasal mask. We will fit her today with a nasal pillow mask and see how she will tolerate that and I will write her prescription for that mask. 3. Sleep hygiene with regular time in bed for 7 hours. 4. No driving if feeling sleepiness. 5. Losing weight. Thank you very much for allowing me to participate in the management of patient. Sincerely, Lyndon Rios MD, PhD, FAASM Diplomat of [employer] [employer] [employer] Contract Negotiation Manager of [facility] [place] MMMEREDITHL / ANNALISE: [id number] /
== END ==
LOC: SLEEP 13:12
PROVIDERS: ATTEND Internal Medicine
DX: G47.33 Obstructive sleep apnea (adult) (pediatric) (principal); I25.10 Atherosclerotic heart disease of native coronary artery without angina pectoris; I10 Essential (primary) hypertension; F32.9 Major depressive disorder, single episode, unspecified; E03.9 Hypothyroidism, unspecified; R32 Unspecified urinary incontinence; Z87.39 Personal history of other diseases of the musculoskeletal system and connective tissue; Z96.653 Presence of artificial knee joint, bilateral; Z90.710 Acquired absence of both cervix and uterus; Z98.84 Bariatric surgery status; Z90.49 Acquired absence of other specified parts of digestive tract; Z98.890 Other specified postprocedural states; Z99.89 Dependence on other enabling machines and devices; Z79.899 Other long term (current) drug therapy

== ENCOUNTER 2021-03-11 09:10 | Day surgery (SDC) | payer MEDICARE ==
[2021-03-09 10:59] VITALS: BMI 39.8
[~2021-03-11 09:10] MED LIST changes: -BUPIVACAINE LIPOSOME/PF 1.3% 20 ML, BUPIVACAIN-EPI 0.5%-1:200,000 25 ML, SODIUM CHLORID... MISCELLANE ONE; -CHLORHEXIDINE GLUCONATE 15 ML CUP MUCOUS MEM ONE; -DEXAMETHASONE SOD PHOSPHATE 10 MG/ML 1 ML VIAL IV ONE; +DEXAMETHASONE SOD PHOSPHATE 4 MG/ML 1 ML VIAL IV ONE; -ENOXAPARIN 40 MG/0.4 ML SYRINGE SQ STA; +LACTATED RINGERS 1,000 ML IV SCH; -PANTOPRAZOLE 40 MG/10 ML VIAL IV STA; +SCOPOLAMINE 1.5MG/72HR PATCH TRANSDERM ONE; -ceFAZolin 2 GM in SODIUM CHLORIDE 0.9% 100 ML IVPB ONE
[2021-03-11] MEDS ORDERED: LIDOCAINE 1% (10MG/ML) FOR IV START INTRADERMA ONE (10:03)
[2021-03-11 10:05] LABS: Glucose,Whole Blood 110 mg/dL (75-99)
[2021-03-11] MEDS ORDERED: fentaNYL (PF) 50 MCG/ML 2 ML AMP IV ONE (10:21)
--- NOTE | 2021-03-11 11:01 | P.ANPRN ---
Procedure Note - Anesthesia - Nerve Block Performed Right Popliteal Single Time Out Performed: Yes Date of Procedure: 03/11/21 Procedure Start Time: : Procedure Stop Time: Location of Patient: PreOp Indication: Requested by Surgeon Specifically requested for management of pain by DrJean Carlos: Thomas Escalante Sedation Type: Sedate with meaningful contact maintained Preparation: Sterile Prep Position: Left Lateral Needle Types: Pajunk Needle Gauge: 21 Ultrasound used to visualize needle placement: Yes Ultrasound used to observe medication spread: Yes Injectate: 0.5% Ropivacaine (see comment for volume) (15 ml plus 5ml 0.9% NS plus 4mg dexamethason) Blood Aspirated: No Pain Paresthesia on Injection Noted: No Resistance on Injection: Normal Image Stored and Saved: Yes Events: Uneventful and Well Tolerated
--- NOTE | 2021-03-11 11:05 | P.ANPRN ---
Procedure Note - Anesthesia - Nerve Block Performed Right Adductor Canal Single Time Out Performed: Yes Date of Procedure: 03/11/21 Procedure Start Time: 10:28 Procedure Stop Time: 10:38 Location of Patient: PreOp Indication: Requested by Surgeon Specifically requested for management of pain by DrJean Carlos: Thomas Escalante Sedation Type: Sedate with meaningful contact maintained Preparation: Sterile Prep Position: Supine Needle Types: Pajunk Needle Gauge: 21 Ultrasound used to visualize needle placement: Yes Ultrasound used to observe medication spread: Yes Injectate: 0.5% Ropivacaine (see comment for volume) (15 ml plus 0.9% NS) Blood Aspirated: No Pain Paresthesia on Injection Noted: No Resistance on Injection: Normal Image Stored and Saved: Yes Events: Uneventful and Well Tolerated
[2021-03-11] MEDS ORDERED: fentaNYL (PF) 50 MCG/ML 2 ML AMP ONE (11:49)
[2021-03-11] MEDS ORDERED: LIDOCAINE 1% INJ 10MG/ML (20 ML MDV) ONE (11:49)
[2021-03-11] MEDS ORDERED: ROPIVACAINE 5 MG/ML 30 ML VIAL ONE (11:49)
[2021-03-11] MEDS ORDERED: SUCCINYLCHOLINE CHLORIDE 100 MG/5 ML SYR IV ONE (11:49)
[2021-03-11] MEDS ORDERED: PROPOFOL 10 MG/ML 20 ML VIAL IV ONE (11:49)
[2021-03-11] MEDS ORDERED: MIDAZOLAM 2 MG/2 ML VIAL ONE (11:49)
[2021-03-11] MEDS ORDERED: DEXAMETHASONE SOD PHOSPHATE 4 MG/ML 1 ML VIAL ONE (11:49)
[2021-03-11] MEDS ORDERED: CEFAZOLIN IV ONE ×2 (12:00)
[2021-03-11] MEDS ORDERED: SODIUM CHLORIDE 0.9% IV ONE ×2 (12:00)
[2021-03-11] MEDS ORDERED: LACTATED RINGERS 1,000 ML IV ONE (12:52)
[2021-03-11 13:22] VITALS: TEMP 97.3
[2021-03-11] MEDS: HYDROmorphone 0.5 MG/0.5 ML SYRINGE IVP PRN ×4 (13:22→13:51)
--- NOTE | 2021-03-11 13:22 | P.OP ---
Date of Procedure: 03/11/21 Preoperative Diagnosis: Benign cyst right tibia Postoperative Diagnosis: Same Procedure(s) Performed: Excision of bone cyst right tibia with allograft Implants: 10 mL of ProStim 0.6 mm mesh plate with 8 6 mm x 2.0 screws Anesthesia: ALLEN Surgeon: Thomas Escalante Estimated Blood Loss (ml): 3 Pathology: none sent Condition: stable Disposition: PACU Indications for Procedure: Patient with a long history of ankle pain. Previous evaluation then noted possi ble AVN or cyst formation of the distal tibia. She had a procedure on the left ankle which involved curettage of the area with insertion of bone graft. Operative Findings: Soft nonviable bone in the distal metaphysis of the tibia Description of Procedure: See dictation
[2021-03-11] MEDS ORDERED: fentaNYL (PF) 50 MCG/ML 2 ML AMP IVP ONE (14:05)
[2021-03-11] MEDS ORDERED: ONDANSETRON 4 MG/2 ML VIAL IVP ONE (14:24)
[2021-03-11 14:33] VITALS: RESP 16
[2021-03-11] MEDS ORDERED: HYDROcodone/APAP 5-325MG 1 EACH TAB ONE (15:16)
[2021-03-11] MEDS ORDERED: HYDROcodone/APAP 5-325MG 1 EACH TAB PO ONE (15:16)
[2021-03-11 16:00] VITALS: PULSE 82
[2021-03-11 16:01] VITALS: BP 130/77
--- NOTE | 2021-03-17 08:49 | OP ---
OPERATIVE REPORT DATE OF SURGERY: March 11, 2021 PREOPERATIVE DIAGNOSIS: Benign bone tumor, right tibia. POSTOPERATIVE DIAGNOSIS: Benign bone tumor, right tibia. PROCEDURE: Excision and curettage of benign tumor, right tibia, with allograft. SURGEON: Thomas Escalante DPM ANESTHESIA: General with preoperative nerve block. HEMOSTASIS: Right mid calf tourniquet at 250 mmHg. ESTIMATED BLOOD LOSS: Minimal. MATERIALS: 10 mm of [employer] Pro-Stim and 0.6 mm mesh plate with eight 6 mm x 2 mm screws. INJECTABLES: None. SPECIMENS: Bone, right tibia. COMPLICATIONS: None. OPERATIVE REPORT: Operative report is as follows: Prior to the patient being brought to the operating room, Anesthesia administered a nerve block in the right lower extremity under ultrasonic guidance and mild sedation. Then the patient was brought into the operating room and placed on the table in supine position. A timeout was taken to confirm correct patient identifiers, correct site of surgery, correct procedure. When the room was in agreement, the patient was placed under general anesthetic. A well-padded tourniquet was placed on the right midcalf keeping 3-4 inch distal to the fibular neck and then the right leg was prepped and draped in usual manner. The leg was exsanguinated and the tourniquet inflated to 250 mmHg. Attention was directed to the anterior medial aspect of the ankle where a linear incision was made avoiding the neurovascular structures in the tibialis anterior and extensor hallucis longus tendons. It was deepened down to the subcutaneous tissue careful to identify, avoid and retract any neurovascular structures and cauterize any bleeding vessels. Blunt dissection was then continued down to the periosteum of the tibia, which was incised and then subperiosteal dissection was performed medial and laterally to expose the bone. A sagittal saw was used to cut a small window into the anterior cortex of the tibia and that window was removed and placed into sterile saline off the surgical field. Curette was then used to remove abnormal material in the distal tibial metaphysis. Visual evaluation noted that the bone appeared to be nonviable, had a grayish discoloration with no active bleeding and then there was an area superior in the medullary canal that was essentially cyst-like with fluid void and that was also thoroughly debrided with a curette to remove as much abnormal material as possible to get down to normal cortical bone. Once that was completed, the area was thoroughly irrigated with antibiotic saline and then the Pro-Stim material was then mixed on the back table and once it was thoroughly mixed, it was then injected into the voids into the distal tibia including up into the medullary canal. The entire 10 mL was utilized. The cortical window was then brought back onto the surgical field and placed back into its position and then a 0.6 mm mesh plate was then cut to size and placed over the cortical window and then 2.0 screws with 6 mm length were placed in through the plate to lock the bone window down into place. Once completed, the construct was stable holding the cortical window in place. The wound was again irrigated with antibiotic saline and periosteum was closed with 2-0 Vicryl and subcutaneous closure done with 4-0 Monocryl. Skin closure done with 3-0 Stratafix in a running subcuticular manner. Dermal glue was applied and allowed to dry and then covered with Steri-Strips and then a dry sterile dressing. The tourniquet was released and capillary refill returned to all digits on the right foot. The patient was placed in an immobilizer with the ankle in neutral position. Anesthesia was reversed and she was taken to recovery with vital signs stable. MMODL / IJN: [id number] /
== END 2021-03-11 16:10 | disposition home or self-care (01) ==
LOC: OR 09:10
PROVIDERS: ATTEND Podiatrist
DX: M85.461 Solitary bone cyst, right tibia and fibula (principal); I10 Essential (primary) hypertension; E78.5 Hyperlipidemia, unspecified; R00.2 Palpitations; E11.40 Type 2 diabetes mellitus with diabetic neuropathy, unspecified; E03.9 Hypothyroidism, unspecified; Z97.3 Presence of spectacles and contact lenses; Z87.11 Personal history of peptic ulcer disease; I25.119 Atherosclerotic heart disease of native coronary artery with unspecified angina pectoris; F32.9 Major depressive disorder, single episode, unspecified; R26.81 Unsteadiness on feet; K58.9 Irritable bowel syndrome, unspecified; M06.9 Rheumatoid arthritis, unspecified; Z96.642 Presence of left artificial hip joint; Z96.653 Presence of artificial knee joint, bilateral; Z98.891 History of uterine scar from previous surgery; Z98.890 Other specified postprocedural states; Z82.49 Family history of ischemic heart disease and other diseases of the circulatory system; Z87.891 Personal history of nicotine dependence; Z79.82 Long term (current) use of aspirin; Z79.890 Hormone replacement therapy; Z79.891 Long term (current) use of opiate analgesic; Z79.899 Other long term (current) drug therapy; Z88.7 Allergy status to serum and vaccine; Z88.8 Allergy status to other drugs, medicaments and biological substances; G89.29 Other chronic pain; M79.7 Fibromyalgia; Z87.01 Personal history of pneumonia (recurrent); N39.3 Stress incontinence (female) (male); Z90.49 Acquired absence of other specified parts of digestive tract; Z82.61 Family history of arthritis; Z83.49 Family history of other endocrine, nutritional and metabolic diseases; Z84.89 Family history of other specified conditions
CPT/HCPCS: 27645; 20932; 64447; 64445; 76942; C1713; J2250; J1100; J0690 ×2; J2405; J2001; J3010; J2795; J0330; J2704; J1170; 64415; 64448

== ENCOUNTER → 2022-11-01 | Outpatient (CLI) | payer MEDICARE ==
--- NOTE | 2022-11-01 11:31 | CT ---
EXAMINATION TYPE: CT ankle LT wo con DATE OF EXAM: 11/01/2022 COMPARISON: left ankle pain, HISTORY: left ankle pain, no injury CT DLP: 240.8 mGycm Automated exposure control for dose reduction was used. CONTRAST: None FINDINGS- There is a large area of mixed lytic and sclerotic changes involving the distal portion of the tibia extending to the articular surface. Osteonecrosis would be the primary consideration. Chondroid lesio n not excluded. Similar finding is seen involving the talus. Additional focus of osteonecrosis suspected. Additionall y there is a linear lucency extending from the talar dome laterally to the lateral superior margin of the talus compatible with a fracture. There is mild displacement. There is soft tissue edema. There is no additional acute fracture or dislocation. Small calcaneal spu rs are noted. Report was called to referring clinician 11:10 AM 11/01/2022. IMPRESSION- 1. Mixed sclerotic and lucent changes involving the talus and distal tibia. There may have been prior intervention with regard to the tibial. Findings are suggestive of osteonecrosis favored over chondr oid lesion. 2. Also suspect a lytic and mixed sclerotic lesion involving the dome of the talus also suspicious fo r osteonecrosis favored over chondroid lesion. There appears to be a pathologic fracture involving th e talar dome extending to the lateral margin of the talus.
== END | disposition home or self-care (01) ==
LOC: RADCTMAIN 10:23
PROVIDERS: ATTEND Podiatrist
DX: M84.472A Pathological fracture, left ankle, initial encounter for fracture (principal); M79.672 Pain in left foot; M21.372 Foot drop, left foot; M87.072 Idiopathic aseptic necrosis of left ankle

== ENCOUNTER 2024-01-11 11:12 | Day surgery (SDC) | payer MEDICARE ==
[2024-01-11] MEDS: ATROPINE SULFATE 0.4 MG/ML 1 ML VIAL IM ONE (12:23)
[2024-01-11 12:31] LABS: Glucose,Whole Blood 104 mg/dL (70-110)
[2024-01-11] MEDS: LACTATED RINGERS 1,000 ML IV SCH ×2 (12:31→17:39)
[2024-01-11] MEDS ORDERED: MIDAZOLAM 2 MG/2 ML VIAL ONE (12:54)
[2024-01-11] MEDS ORDERED: fentaNYL (PF) 50 MCG/ML 2 ML AMP ONE (12:54)
[2024-01-11] MEDS ORDERED: PROPOFOL 10 MG/ML 20 ML VIAL IV ONE (12:54)
[2024-01-11] MEDS ORDERED: SUCCINYLCHOLINE CHLORIDE 200 MG/10 ML VIAL IV ONE (12:54)
[2024-01-11] MEDS ORDERED: LIDOCAINE 1% INJ 10MG/ML (20 ML MDV) ONE (12:54)
[2024-01-11 14:09] LABS: Glucose,Whole Blood 102 mg/dL (70-110)
--- NOTE | 2024-01-11 14:48 | XR ---
EXAMINATION TYPE: XR chest 1V portable DATE OF EXAM: 01/11/2024 Comparison: None Clinical History: 63-year-old female post bronch Findings: Heart upper limits of normal in size. Mild interstitial prominence as a chronic appearance. No apprec iable pneumothorax. No consolidation or pleural effusion seen. Suspect some trace scattered pneumomed iastinum. Surgical material at the GE junction. Impression: No appreciable pneumothorax or focal consolidation. Suspect some scattered trace pneumomediastinum.
--- NOTE | 2024-01-11 15:03 | OP ---
OPERATIVE REPORT DATE OF SERVICE : TITLE: Pulmonary/Critical Care procedure note. PROCEDURE PERFORMED: Bronchoscopy, airway examination, therapeutic lavage, BAL right middle lobe brushes, right lower lobe and transbronchial biopsies both in the right lower lobe, and right middle lobe. PREOPERATIVE DIAGNOSES: Chronic cough and interstitial lung disease. POSTOPERATIVE DIAGNOSES: Chronic cough and interstitial lung disease. ANESTHESIA: Provided general anesthesia. TIME-OUT: There was informed consent, universal timeout. FIRST FAUCET POLISHER: Dr. Carrie Palacios. DESCRIPTION OF PROCEDURE: The patient's procedure took place in room #1 [facility]. After the patient was on the ventilator machine and under the effects of general anesthesia, the bronchoscope was inserted through the bronchoscope adapter connected to the endotracheal tube. The mid and distal trachea appeared normal. Tracheal shruthi was sharp. We did a thorough evaluation of the right upper lobe and its 3 segments, right middle lobe and its 2 segments, right lower lobe and its 5 segments, left upper lobe proper and its 2 segments, lingula and its 2 segments, and left lower lobe and its 4 segments. The airway itself appeared completely normal. There was no dominant mass or tumor. There were minimal airway secretions. There was no bleeding. Next, under fluoroscopic guidance, we did brushes to the right lower lobe. Following that, we did multiple transbronchial biopsies to the right lower lobe, and also into the right middle lobe. The patient tolerated that portion of the procedure well. Next, we did a formal BAL of the right middle lobe. Again, the patient tolerated the procedure well. There was minimal bleeding. After the procedure, we ensured hemostasis. The bronchoscope was withdrawn. On the fluoroscopic evaluation, we checked for pneumothorax, and there was none. A formal chest x-ray will be ordered. There was no immediate complication. I did speak to the family. The patient will be taken back to the recovery area. MMODL / IJN: [id number] /
--- NOTE | 2024-01-11 15:35 | P.CNPUL ---
History of Present Illness Consult date: 01/11/24 Requesting physician: Nupur Rainey Reason for consult: dyspnea, cough, chest pain, abnormal CXR/CT Chief complaint: Chronic cough, barotrauma. History of present illness: Pulmonary consult dated January 11, 2024. This is a 63-year-old female who underwent bronchoscopy today. The patient has a history of chronic cough, and some interstitial changes, on CAT scan, which may relate to coronavirus infection. The patient had an uneventful procedure today and we did transbronchial biopsies of the right lower lobe, and right middle lobe. In addition, we did some brushings and washings. The patient was stable throughout the procedure, and there was no obvious pneumothorax, on fluoroscopy after the procedure. The patient went to the postoperative area, and was recovering, and the routine follow-up chest x-ray, suggested the possibility of some subcutaneous emphysema. It may relate to the procedure, or her chronic cough. There is no obvious pneumothorax. The patient was briefly seen in the postoperative area, we decided to admit her to the hospital, overnight, with some oxygen therapy, medications for her cough, and a follow-up chest x-ray in the morning. I spoke to the sound physician, Dr. Alfredo, who agreed to see the patient for us. The chest x-ray as read by the radiologist suggest scattered trace pneumomediastinum. We did review the chest x-ray ourselves. On examination, there is no palpable subcutaneous emphysema. Review of Systems REVIEW OF SYSTEMS: CONSTITUTIONAL: [Negative.] NEUROLOGIC: [ Negative.] HEENT: [ Negative.] CARDIAC: [Negative.] PULMONARY: Chronic cough. GI: [Negative.] : [Negative.] RHEUMATOLOGIC: [ Negative.] IMMUNOLOGIC: [ Negative.] ENDOCRINE: [Negative. ] DERMATOLOGIC: [Negative.] Past Medical History Past Medical History: Diabetes Mellitus, Fibromyalgia, GERD/Reflux, Hyperlipidemia, Hypertension, Respiratory Disorder, Rheumatoid Arthritis (RA), Thyroid Disorder Additional Past Medical History / Comment(s): hypothroidism, Hx of severe reaction to methotrexate with respiratory arrest and on ventilator. (10 yrs ago.) avascular necrosis of joints, occasional irregular heart beat., Prizmetal varient angina, IBS/C, Covid early 2019, pulmonary fibrosis,has had cough x 6 mos.(sometimes dry and other times productive) History of Any Multi-Drug Resistant Organisms: None Reported Past Surgical History: Back Surgery, Bariatric Surgery, Section, Cholecystectomy, Heart Catheterization, Hysterectomy, Joint Replacement, Orthopedic Surgery, Tonsillectomy Additional Past Surgical History / Comment(s): laminectomy, hemorrhoidectomy, removal of ovaries, lypoma removed under left arm, lapband inserted & removed., feeding tube & trach placed and removed, bilateral knee and left hip replacement, A lift T4-5, Rt. Rotator cuff repair 2022 Past Anesthesia/Blood Transfusion Reactions: Motion Sickness, Postoperative Nausea & Vomiting (PONV) Smoking Status: Former smoker - Past Family History Father Family Medical History: Congestive Heart Failure (CHF), Hyperlipidemia, Hypertension Additional Family Medical History / Comment(s): Passed from CHF in 2014 Mother Family Medical History: CVA/TIA, Fibromyalgia, Hypertension, Thyroid Disorder Additional Family Medical History / Comment(s): depression, hypothroidism, Brother(s) Family Medical History: Cancer Additional Family Medical History / Comment(s): PROSTATE CANCER Medications and Allergies Home Medications Medication Instructions Recorded Confirmed Type Aspirin [Adult Low Dose Aspirin EC] 81 mg PO DAILY 01/20/16 01/11/24 History FLUoxetine HCL [PROzac] 40 mg PO BID 01/20/16 01/11/24 History Omeprazole 40 mg PO -BRKFST #90 cap 06/28/16 01/11/24 Rx Amitriptyline (Unknown Dose) 1 tab PO HS 03/09/21 01/11/24 History Ascorbic Acid/Collagen Hydr 1 each PO DIRECTED 03/09/21 01/11/24 History [Collagen Plus Vit C Capsule] Cholecalciferol [Vitamin D3 (25 25 mcg PO SUMOTUTHFR 03/09/21 01/11/24 History Mcg = 1000 Iu)] Ergocalciferol (Vitamin D2) 1,250 mcg PO WESA 03/09/21 01/11/24 History [Vitamin D2 (50,000 Iu)] Famotidine [Pepcid] 20 mg PO HS 03/09/21 01/11/24 History Ibuprofen [Motrin] 800 mg PO Q8H PRN 03/09/21 01/11/24 History L.acidoph,Paracasei, B.lactis 1 each PO HS 03/09/21 01/11/24 History [Probiotic] Levothyroxine Sodium [Synthroid] 150 mcg PO QAM 03/09/21 01/11/24 History Metoprolol Tartrate [Lopressor] 50 mg PO QAM 03/09/21 01/11/24 History Rosuvastatin [Crestor] 20 mg PO HS 03/09/21 01/11/24 History Turmeric (Unknown Dose) 1 cap PO BID 03/09/21 01/11/24 History oxyBUTYnin chloride [Ditropan] 5 mg PO BID 03/09/21 01/11/24 History traMADol HCl [Ultram] 50 mg PO BID 03/09/21 01/11/24 History Acetaminophen Tab [Tylenol Tab] 1,000 mg PO Q6HR PRN 01/08/24 01/11/24 History Albuterol Inhaler [Ventolin Hfa 1 puff INHALATION QID 01/08/24 01/11/24 History Inhaler] Albuterol Nebulized [Ventolin 2.5 mg INHALATION Q6H 01/08/24 01/11/24 History Nebulized] Budesonide [Pulmicort Flexhaler] 1 puff INHALATION BID 01/08/24 01/11/24 History Budesonide [Pulmicort] 0.5 mg INHALATION BID 01/08/24 01/11/24 History Gabapentin [Neurontin] 100 mg PO BID 01/08/24 01/11/24 History Linaclotide [Linzess] 145 mcg PO HS 01/08/24 01/11/24 History Metoprolol Tartrate 25 mg PO HS 01/08/24 01/11/24 History Multivitamin [Multivitamins Adult 1 tab PO QAM 01/08/24 01/11/24 History Gummies] Nitroglycerin Sl Tabs [Nitrostat] 0.4 mg SUBLINGUAL Q5M PRN 01/08/24 01/11/24 History Super C 1 tab PO HS 01/08/24 01/11/24 History Allergies Allergy/AdvReac Type Severity Reaction Status Date / Time methotrexate AdvReac Anaphylaxis-cardiac Verified 01/11/24 12:33 & resp arrest thimerosal AdvReac Anaphylaxis, Verified 01/11/24 12:33 hives Physical Exam Osteopathic Statement: *. No significant issues noted on an osteopathic structural exam other than those noted in the History and Physical/Consult. Vitals: Vital Signs Temp Pulse Resp BP Pulse Ox 01/11/24 14:24 84 16 131/71 90 L 01/11/24 14:17 86 18 115/52 93 L 01/11/24 14:02 90 18 114/56 93 L 01/11/24 13:47 91 18 115/70 96 01/11/24 13:31 97.8 F 92 18 102/71 96 01/11/24 12:16 98.1 F 83 20 147/72 94 L Intake and Output 01/11/24 01/11/24 01/11/24 06:59 14:59 22:59 Intake Total 700 Balance 700 Intake: IV 700 Other: Weight 105.8 kg No acute distress, oriented 3. Room air saturations about 90%. HEENT examination is grossly unremarkable. Mucous membranes are moist. No oral lesions. Neck supple. Full range of motion. No adenopathy thyromegaly or neck vein distention. Cardiovascular examination reveals regular rhythm rate. S1-S2 normal. No S3 or S4. No discernible murmur noted. Heart rate 84 bpm. Lungs reveal clear breath sounds. Breath sounds are equal bilaterally. No adventitious lung sounds including wheezes rhonchi or crackles. Abdomen soft bowel sounds are heard. No masses or tenderness. Extremities are intact. No cyanosis clubbing or edema. Skin is without rash or lesion. Neurologic examination is brief but nonfocal. Results - Diagnostic Findings Chest x-ray: image reviewed Assessment and Plan Assessment: Status post bronchoscopy, for interstitial lung disease/chronic cough, with transbronchial biopsies to the right middle lobe and right lower lobe, procedure itself uneventful. Possible trace pneumomediastinum, either from the procedure, or from chronic cough, without evidence of pneumothorax. Multiple other medical problems and comorbidities including gastroesophageal reflux disease, stress urinary incontinence, hyperlipidemia, hypertension, and hypothyroidism. Plan: Plan dated January 11, 2024. The patient will be admitted to the general medical floor. I spoke to Dr. Alfredo from [facility], and either her or one of her partners will come and see the patient. The patient is given oxygen at 2 L. Will also make sure the patient has something for her cough, i.e. Robitussin, Tessalon Perles. The patient will have a chest x-ray in the morning. I explained this to the patient, the patient's and daughter. They are agreeable. Additional recommendations and suggestions are forthcoming. Time with Patient: Greater than 30
[2024-01-11] MEDS ORDERED: NALOXONE 0.4 MG/ML 1 ML VIAL IV PRN (16:07)
[2024-01-11] MEDS ORDERED: ACETAMINOPHEN TAB 325 MG TAB PO PRN (16:07)
[2024-01-11] MEDS ORDERED: ACETAMINOPHEN TAB 500 MG TAB PO PRN (16:13)
--- NOTE | 2024-01-11 17:21 | P.HPIM ---
History of Present Illness H&P Date: 01/11/24 Chief Complaint: Hypoxia 63-year-old woman with a medical history of pulmonary fibrosis suspected secondary to COVID back in 2021, hypertension, hyperlipidemia presented for elective bronchoscopy. Following the operation she had a period of hypoxia which resolved with 2 L of oxygenation. Patient did report some shortness of breath during the episode. She also reports some pain in the chest especially with coughing. Patient has had chronic cough for quite some time. She denies any changes to the characteristic or quality of the cough, dry, no sputum production. In the past she has had sputum production which is range from white to green, but does not endorse sputum production at this time. She denies weight loss, night sweats. She denies abdominal pain, diarrhea. She reports minimal appetite at this time. Upon my evaluation, patient was afebrile, 121/71, heart rate 74, 95% on 2 L of nasal cannula. [id number] glucose showed values of 104 and then 102. EKG demonstrated normal sinus rhythm, normal axis, no evidence of ischemia. Chest x-ray was reviewed and personally interpreted and demonstrated pneumomediastinum, clear parenchyma bilaterally, normal-sized heart. Case was discussed with our counter person, who recommended observation admission overnight. All Systems reviewed and pertinent positives and negatives noted in HPI, all other symptoms are negative Gen: In NAD, non-toxic HEENT: normocephalic, atraumatic, hearing acuity is intant, mucous membranes moist, no tracheal deviation CVS: perfusing all extremities well, no pitting edema, regular rate and rhythm without murmurs Respiratory: symmetric chest expansion, no accessory muscle use, fine crackles in all lung galindo with slightly coarser quality in the right lower posterior lung field, no crepitus was appreciated on exam GI: soft, NTTP, ND, : no suprapubic tenderness, no CVA tenderness MSK/Derm: no rashes, cyanosis Neuro: CN II-XII intact, no motor weakness, Psych: cooperative, euthymic mood, judgment and insight is intact Labs and imaging as above Assessment/plan: Acute hypoxemic respiratory failure Pneumomediastinum Status post bronchoscopy -Supplemental oxygen as needed -Pulmonology consult -Repeat chest x-ray -Guaifenesin with codeine for cough suppression -Tessalon Perles as needed for cough suppression -Tylenol, Wren as needed for pain Hypertension Hyperlipidemia Mood disorder -Resume home medications Patient is full code Past Medical History Past Medical History: Diabetes Mellitus, Fibromyalgia, GERD/Reflux, Hyperlipidemia, Hypertension, Respiratory Disorder, Rheumatoid Arthritis (RA), Thyroid Disorder Additional Past Medical History / Comment(s): hypothroidism, Hx of severe reaction to methotrexate with respiratory arrest and on ventilator. (10 yrs ago.) avascular necrosis of joints, occasional irregular heart beat., Prizmetal varient angina, IBS/C, Covid early 2019, pulmonary fibrosis,has had cough x 6 mos.(sometimes dry and other times productive) History of Any Multi-Drug Resistant Organisms: None Reported Past Surgical History: Back Surgery, Bariatric Surgery, Section, Cholecystectomy, Heart Catheterization, Hysterectomy, Joint Replacement, Orthopedic Surgery, Tonsillectomy Additional Past Surgical History / Comment(s): laminectomy, hemorrhoidectomy, removal of ovaries, lypoma removed under left arm, lapband inserted & removed., feeding tube & trach placed and removed, bilateral knee and left hip replacement, A lift T4-5, Rt. Rotator cuff repair 2022 Past Anesthesia/Blood Transfusion Reactions: Motion Sickness, Postoperative Nausea & Vomiting (PONV) Smoking Status: Former smoker - Past Family History Father Family Medical History: Congestive Heart Failure (CHF), Hyperlipidemia, Hypertension Additional Family Medical History / Comment(s): Passed from CHF in 2014 Mother Family Medical History: CVA/TIA, Fibromyalgia, Hypertension, Thyroid Disorder Additional Family Medical History / Comment(s): depression, hypothroidism, Brother(s) Family Medical History: Cancer Additional Family Medical History / Comment(s): PROSTATE CANCER Medications and Allergies Home Medications Medication Instructions Recorded Confirmed Type Aspirin [Adult Low Dose Aspirin EC] 81 mg PO DAILY 01/20/16 01/11/24 History FLUoxetine HCL [PROzac] 40 mg PO BID 01/20/16 01/11/24 History Omeprazole 40 mg PO AC-BRKFST #90 cap 06/28/16 01/11/24 Rx Amitriptyline (Unknown Dose) 1 tab PO HS 03/09/21 01/11/24 History Ascorbic Acid/Collagen Hydr 1 each PO DIRECTED 03/09/21 01/11/24 History [Collagen Plus Vit C Capsule] Cholecalciferol [Vitamin D3 (25 25 mcg PO SUMOTUTHFR 03/09/21 01/11/24 History Mcg = 1000 Iu)] Ergocalciferol (Vitamin D2) 1,250 mcg PO WESA 03/09/21 01/11/24 History [Vitamin D2 (50,000 Iu)] Famotidine [Pepcid] 20 mg PO HS 03/09/21 01/11/24 History Ibuprofen [Motrin] 800 mg PO Q8H PRN 03/09/21 01/11/24 History L.acidoph,Paracasei, B.lactis 1 each PO HS 03/09/21 01/11/24 History [Probiotic] Levothyroxine Sodium [Synthroid] 150 mcg PO QAM 03/09/21 01/11/24 History Metoprolol Tartrate [Lopressor] 50 mg PO QAM 03/09/21 01/11/24 History Rosuvastatin [Crestor] 20 mg PO HS 03/09/21 01/11/24 History Turmeric (Unknown Dose) 1 cap PO BID 03/09/21 01/11/24 History oxyBUTYnin chloride [Ditropan] 5 mg PO BID 03/09/21 01/11/24 History traMADol HCl [Ultram] 50 mg PO BID 03/09/21 01/11/24 History Acetaminophen Tab [Tylenol Tab] 1,000 mg PO Q6HR PRN 01/08/24 01/11/24 History Albuterol Inhaler [Ventolin Hfa 1 puff INHALATION QID 01/08/24 01/11/24 History Inhaler] Albuterol Nebulized [Ventolin 2.5 mg INHALATION Q6H 01/08/24 01/11/24 History Nebulized] Budesonide [Pulmicort Flexhaler] 1 puff INHALATION BID 01/08/24 01/11/24 History Budesonide [Pulmicort] 0.5 mg INHALATION BID 01/08/24 01/11/24 History Gabapentin [Neurontin] 100 mg PO BID 01/08/24 01/11/24 History Linaclotide [Linzess] 145 mcg PO HS 01/08/24 01/11/24 History Metoprolol Tartrate 25 mg PO HS 01/08/24 01/11/24 History Multivitamin [Multivitamins Adult 1 tab PO QAM 01/08/24 01/11/24 History Gummies] Nitroglycerin Sl Tabs [Nitrostat] 0.4 mg SUBLINGUAL Q5M PRN 01/08/24 01/11/24 History Super C 1 tab PO HS 01/08/24 01/11/24 History Allergies Allergy/AdvReac Type Severity Reaction Status Date / Time methotrexate AdvReac Anaphylaxis-cardiac Verified 01/11/24 12:33 & resp arrest thimerosal AdvReac Anaphylaxis, Verified 01/11/24 12:33 hives Physical Exam Osteopathic Statement: *. No significant issues noted on an osteopathic structural exam other than those noted in the History and Physical/Consult. Vitals: Vital Signs Temp Pulse Resp BP Pulse Ox 01/11/24 15:25 74 16 121/71 95 01/11/24 14:54 84 L 01/11/24 14:39 81 16 116/67 92 L 01/11/24 14:24 84 16 131/71 90 L 01/11/24 14:17 86 18 115/52 93 L 01/11/24 14:02 90 18 114/56 93 L 01/11/24 13:47 91 18 115/70 96 01/11/24 13:31 97.8 F 92 18 102/71 96 01/11/24 12:16 98.1 F 83 20 147/72 94 L Intake and Output 01/11/24 01/11/24 01/11/24 06:59 14:59 22:59 Intake Total 700 Balance 700 Intake: IV 700 Other: Weight 105.8 kg
[2024-01-11] MEDS: BENZONATATE 100 MG CAP PO PRN (17:42)
[2024-01-11] MEDS: guaiFENesin-Coden 100-10MG/5ML 10 ML CUP PO PRN (17:43)
[2024-01-11] MEDS: CHOLECALCIFEROL 25 MCG (1000 IU) TABLET PO SCH (17:43)
[2024-01-11] MEDS ORDERED: ALBUTEROL HFA INHALER INHALATION SCH (18:00)
[2024-01-11] MEDS: oxyCODONE-APAP 5-325MG 1 EACH TAB PO PRN (19:03)
[2024-01-11] MEDS: ALBUTEROL NEBULIZED 2.5 MG/3 ML INHALATION SCH (20:40)
[2024-01-11] MEDS: FLUTICASONE 110 MCG INHALER INHALATION SCH (20:40)
[2024-01-11] MEDS: LACTOBACILLUS ACIDOPHILUS/PECT 1 EACH CAPSULE PO SCH (20:52)
[2024-01-11] MEDS: GABAPENTIN 100 MG CAP PO SCH (20:52)
[2024-01-11] MEDS: ATORVASTATIN 40 MG TAB PO SCH (20:52)
[2024-01-11] MEDS: FAMOTIDINE 20 MG TAB PO SCH (20:52)
[2024-01-11] MEDS: FLUoxetine HCL 20 MG CAP PO SCH (20:52)
[2024-01-11] MEDS: METOPROLOL TARTRATE 25 MG TAB PO SCH (20:52)
[2024-01-11] MEDS: oxyBUTYnin chloride 5 MG TAB PO SCH (20:52)
[2024-01-11] MEDS: traMADol 50 MG TAB PO SCH (20:52)
[2024-01-11] MEDS: AMITRIPTYLINE HCL 50 MG TAB PO SCH (20:52)
[2024-01-11] MEDS: NON FORMULARY DRUG (Linaclotide [Linzess] 145 MCG Capsule) PO SCH (20:53)
[2024-01-12 05:17] LABS: Appearance,BF Blood Tinged (Clear); RBC, Body Fluid 368 /UL (0-2000)
[2024-01-12] MEDS: LEVOTHYROXINE 75 MCG TAB PO SCH (05:47)
--- NOTE | 2024-01-12 06:58 | FL ---
EXAMINATION TYPE: FL bronchoscopy DATE OF EXAM: 01/11/2024 COMPARISON: NONE HISTORY: Pulmonary fibrosis TECHNIQUE: Fluoroscopy. FINDINGS: Fluoroscopic guidance was provided during bronchoscopy procedure performed by Dr. Hooper. A total of 96 seconds of fluoroscopic time was utilized during the procedure and 13 spot images are a cquired. Total dose area product (DAP) in uGy*m?, mGy*cm? (or similar): 4.9128. IMPRESSION: As Above.
--- NOTE | 2024-01-12 08:33 | P.PN ---
Subjective Progress Note Date: 01/12/24 Principal diagnosis: Chronic cough. Pulmonary consult dated January 11, 2024. This is a 63-year-old female who underwent bronchoscopy today. The patient has a history of chronic cough, and some interstitial changes, on CAT scan, which may relate to coronavirus infection. The patient had an uneventful procedure today and we did transbronchial biopsies of the right lower lobe, and right middle lobe. In addition, we did some brushings and washings. The patient was stable throughout the procedure, and there was no obvious pneumothorax, on fluoroscopy after the procedure. The patient went to the postoperative area, and was recovering, and the routine follow-up chest x-ray, suggested the possibility of some subcutaneous emphysema. It may relate to the procedure, or her chronic cough. There is no obvious pneumothorax. The patient was briefly seen in the postoperative area, we decided to admit her to the hospital, overnight, with some oxygen therapy, medications for her cough, and a follow-up chest x-ray in the morning. I spoke to the sound physician, Dr. Alfredo, who agreed to see the patient for us. The chest x-ray as read by the radiologist suggest scattered trace pneumomediastinum. We did review the chest x-ray ourselves. On examination, there is no palpable subcutaneous emphysema. Progress note dated January 12, 2024. The patient is seen today in room 531. Yesterday, the patient had bronchoscopy, washings, brushings, and biopsies, of the right middle lobe, and right lower lobe. They were transbronchial biopsies. The procedure itself was uneventful. After the procedure, the patient had some saturations that were borderline, and a chest x-ray, ordered after the procedure, showed some subcutaneous emphysema, with the potential of pneumomediastinum. Clinically, the patient is seen this morning, and is doing well. She continues on 3 L. A chest x-ray is pending. I have asked the nurses to check a room air saturation. She may need oxygen on discharge. 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 When I see her in the office, pending the biopsy results, I will likely offer her corticosteroids. No recent labs. Chest x-ray still pending. Objective - Vital Signs Vital signs: Vital Signs Temp 97.4 F L 01/12/24 02:00 Pulse 90 01/12/24 08:24 Resp 16 01/12/24 02:00 BP 118/77 01/12/24 02:00 Pulse Ox 96 01/12/24 08:24 FiO2 Intake & Output 01/11/24 01/12/24 01/12/24 18:59 06:59 18:59 Intake Total 700 830 Balance 700 830 Weight 105.8 kg Intake: IV 700 Oral 830 Other: # Voids 1 - Exam No acute distress, oriented 3. Patient is currently on 3 L by nasal cannula. HEENT examination is grossly unremarkable. Mucous membranes are moist. No oral lesions. Neck supple. Full range of motion. No adenopathy thyromegaly or neck vein distention. Cardiovascular examination reveals regular rhythm rate. S1-S2 normal. No S3 or S4. No discernible murmur noted. Heart rate 90 bpm. Lungs reveal clear breath sounds. Breath sounds are equal bilaterally. No adventitious lung sounds including wheezes rhonchi or crackles. Abdomen soft bowel sounds are heard. No masses or tenderness. Extremities are intact. No cyanosis clubbing or edema. Skin is without rash or lesion. Neurologic examination is brief but nonfocal. - Labs Labs: Abnormal Lab Results - Last 24 Hours (Table) 01/11/24 Range/Units 13:00 Fluid Appearance Blood Tinged A (Clear) Assessment and Plan Assessment: Status post bronchoscopy, for interstitial lung disease/chronic cough, with transbronchial biopsies to the right middle lobe and right lower lobe, procedure itself uneventful. Possible trace pneumomediastinum, either from the procedure, or from chronic cou gh, without evidence of pneumothorax. Chronic cough, and shortness of breath, likely reflecting postinflammatory pulmonary fibrosis, secondary to coronavirus infection. Multiple other medical problems and comorbidities including gastroesophageal reflux disease, stress urinary incontinence, hyperlipidemia, hypertension, and hypothyroidism. Plan: Plan dated January 11, 2024. The patient will be admitted to the general medical floor. I spoke to Dr. Alfredo from [facility], and either her or one of her partners will come and see the patient. The patient is given oxygen at 2 L. Will also make sure the patient has something for her cough, i.e. Robitussin, Tessalon Perles. The patient will have a chest x-ray in the morning. I explained this to the patient, the patient's and daughter. They are agreeable. Additional recommendations and suggestions are forthcoming. Plan dated January 12, 2024. According to the patient, she had an uneventful night. The patient will have a room air saturation checked. In addition, we are awaiting this morning's chest x-ray. Clinically she looks stable and likely will be able to be discharged. Additional recommendations and suggestions are forthcoming. We did give her some Robitussin and Tessalon Perles for her cough last night. Labs, x-rays, and medications are all reviewed. Time with Patient: Less than 30
[2024-01-12 09:04] VITALS: BP 105/63; PULSE 69; RESP 18; TEMP 97.6
[2024-01-12] MEDS: ERGOCALCIFEROL 1,250 MCG (50,000 IU) CAPSULE PO SCH (09:08)
[2024-01-12] MEDS: MULTIVITAMINS, THERA 1 EACH TAB PO SCH (09:09)
[2024-01-12] MEDS: ASPIRIN 81 MG PO SCH (09:10)
[2024-01-12] MEDS: PANTOPRAZOLE 40 MG TABLET PO SCH (09:10)
[2024-01-12] MEDS: METOPROLOL TARTRATE 50 MG TAB PO SCH (09:10)
--- NOTE | 2024-01-12 10:03 | XR ---
EXAMINATION TYPE: XR chest 2V DATE OF EXAM: 01/12/2024 9:57 AM CLINICAL INDICATION:Female, 63 years old with history of pneumomediastinum; [facility] COMPARISON: Chest radiograph from one day prior. TECHNIQUE: XR chest 2V Frontal and lateral views of the chest. FINDINGS: Lungs/Pleura: There is no evidence of pleural effusion, focal consolidation, or pneumothorax. Pulmonary vascularity: Unremarkable. Heart/mediastinum: Cardiomediastinal silhouette is unremarkable. Musculoskeletal: No acute osseous pathology. Other findings: Subcutaneous emphysema scattered throughout the visualized which is decreased from pr ior.. IMPRESSION: Decrease in pneumomediastinum with persistent lucencies seen within the neck.
--- NOTE | 2024-01-12 16:03 | P.DS ---
Providers Date of admission: 01/11/24 15:44 Expected date of discharge: 01/12/24 Attending physician: Nupur Rainey MD Consults: 01/11/24 15:32 Consult Physician Routine Consulting Provider: Whitney Spaulding Consult Reason/Comments: hospital care Do you want consulting provider notified?: Already Contacted 01/11/24 15:46 Consult Physician Routine Consulting Provider: Tyrell Hooper Consult Reason/Comments: KNOWN TO PATIENT Do you want consulting provider notified?: Already Contacted Primary care physician: [facility] Course: Acute hypoxemic respiratory failure Pneumomediastinum Status post bronchoscopy Hypertension Hyperlipidemia Mood disorder 63-year-old woman with a medical history of pulmonary fibrosis suspected secondary to COVID back in 2021, hypertension, hyperlipidemia presented for elective bronchoscopy. Upon my evaluation, patient was afebrile, 121/71, heart rate 74, 95% on 2 L of nasal cannula. [id number] glucose showed values of 1 04 and then 102. EKG demonstrated normal sinus rhythm, normal axis, no evidence of ischemia. Chest x-ray was reviewed and personally interpreted and demonstrated pneumomediastinum, clear parenchyma bilaterally, normal-sized heart. Case was discussed with our inventory specialist, who recommended observation admission overnight. Patient was able to be weaned to room air by the following day and was discharged home with pulmonology follow-up with plans for repeat chest x-ray and likely initiation of steroids in the outpatient setting. Gen: In NAD, non-toxic HEENT: normocephalic, atraumatic, hearing acuity is intant, mucous membranes moist, no tracheal deviation CVS: perfusing all extremities well, no pitting edema, regular rate and rhythm without murmurs Respiratory: symmetric chest expansion, no accessory muscle use, fine crackles in all lung galindo with slightly coarser quality in the right lower posterior lung field, no crepitus was appreciated on exam GI: soft, NTTP, ND, : no suprapubic tenderness, no CVA tenderness MSK/Derm: no rashes, cyanosis Neuro: CN II-XII intact, no motor weakness, Psych: cooperative, euthymic mood, judgment and insight is intact Patient Condition at Discharge: Good Plan - Discharge Summary Discharge Rx Participant: Yes New Discharge Prescriptions: Continue FLUoxetine HCL [PROzac] 40 mg PO BID Aspirin [Adult Low Dose Aspirin EC] 81 mg PO DAILY Omeprazole 40 mg PO AC-BRKFST #90 cap Metoprolol Tartrate [Lopressor] 50 mg PO QAM Levothyroxine Sodium [Synthroid] 150 mcg PO QAM Amitriptyline (Unknown Dose) 1 tab PO HS traMADol HCl [Ultram] 50 mg PO BID Ibuprofen [Motrin] 800 mg PO Q8H PRN PRN Reason: Pain Cholecalciferol [Vitamin D3 (25 Mcg = 1000 Iu)] 25 mcg PO SUMOTUTHFR Super C 1 tab PO HS Albuterol Nebulized [Ventolin Nebulized] 2.5 mg INHALATION Q6H Budesonide [Pulmicort] 0.5 mg INHALATION BID Gabapentin [Neurontin] 100 mg PO BID Acetaminophen Tab [Tylenol] 1,000 mg PO Q6HR PRN PRN Reason: Pain oxyBUTYnin chloride [Ditropan] 5 mg PO BID L.acidoph,Paracasei, B.lactis [Probiotic] 1 each PO HS Famotidine [Pepcid] 20 mg PO HS Turmeric (Unknown Dose) 1 cap PO BID Rosuvastatin [Crestor] 20 mg PO HS Ergocalciferol (Vitamin D2) [Vitamin D2 (50,000 Iu)] 1,250 mcg PO WESA Ascorbic Acid/Collagen Hydr [Collagen Plus Vit C Capsule] 1 each PO DIRECTED Albuterol Inhaler [Ventolin Hfa Inhaler] 1 puff INHALATION QID Budesonide [Pulmicort Flexhaler] 1 puff INHALATION BID Linaclotide [Linzess] 145 mcg PO HS Metoprolol Tartrate 25 mg PO HS Multivitamin [Multivitamins Adult Gummies] 1 tab PO QAM Nitroglycerin Sl Tabs [Nitrostat] 0.4 mg SUBLINGUAL Q5M PRN PRN Reason: Chest Pain Discharge Medication List Aspirin [Adult Low Dose Aspirin EC] 81 mg PO DAILY 01/20/16 [History] FLUoxetine HCL [PROzac] 40 mg PO BID 01/20/16 [History] Omeprazole 40 mg PO AC-BRKFST #90 cap 06/28/16 [Rx] Amitriptyline (Unknown Dose) 1 tab PO HS 03/09/21 [History] Ascorbic Acid/Collagen Hydr [Collagen Plus Vit C Capsule] 1 each PO DIRECTED 03/09/21 [History] Cholecalciferol [Vitamin D3 (25 Mcg = 1000 Iu)] 25 mcg PO SUMOTUTHFR 03/09/21 [History] Ergocalciferol (Vitamin D2) [Vitamin D2 (50,000 Iu)] 1,250 mcg PO WESA 03/09/21 [History] Famotidine [Pepcid] 20 mg PO HS 03/09/21 [History] Ibuprofen [Motrin] 800 mg PO Q8H PRN 03/09/21 [History] L.acidoph,Paracasei, B.lactis [Probiotic] 1 each PO HS 03/09/21 [History] Levothyroxine Sodium [Synthroid] 150 mcg PO QAM 03/09/21 [History] Metoprolol Tartrate [Lopressor] 50 mg PO QAM 03/09/21 [History] Rosuvastatin [Crestor] 20 mg PO HS 03/09/21 [History] Turmeric (Unknown Dose) 1 cap PO BID 03/09/21 [History] oxyBUTYnin chloride [Ditropan] 5 mg PO BID 03/09/21 [History] traMADol HCl [Ultram] 50 mg PO BID 03/09/21 [History] Acetaminophen Tab [Tylenol] 1,000 mg PO Q6HR PRN 01/08/24 [History] Albuterol Inhaler [Ventolin Hfa Inhaler] 1 puff INHALATION QID 01/08/24 [History] Albuterol Nebulized [Ventolin Nebulized] 2.5 mg INHALATION Q6H 01/08/24 [History] Budesonide [Pulmicort Flexhaler] 1 puff INHALATION BID 01/08/24 [History] Budesonide [Pulmicort] 0.5 mg INHALATION BID 01/08/24 [History] Gabapentin [Neurontin] 100 mg PO BID 01/08/24 [History] Linaclotide [Linzess] 145 mcg PO HS 01/08/24 [History] Metoprolol Tartrate 25 mg PO HS 01/08/24 [History] Multivitamin [Multivitamins Adult Gummies] 1 tab PO QAM 01/08/24 [History] Nitroglycerin Sl Tabs [Nitrostat] 0.4 mg SUBLINGUAL Q5M PRN 01/08/24 [History] Super C 1 tab PO HS 01/08/24 [History] Follow up Appointment(s)/Referral(s): Tyrell Hooper DO [Doctor of Osteopathic Medicine] - 01/15/24 (Dr Hooper wants to see you e morning for a chest x ray at 0830 am) Patient Instructions/Handouts: *[facility] - Bronchoscopy Discharge Instructions, *[facility] - (Anesthesia) Discharge Instructions Outpatient Surgery Discharge Disposition: HOME SELF-CARE
[2024-01-15 11:07] LABS: Nucleated Cells, Body Fluid 21 /UL
== END 2024-01-12 12:20 | disposition home or self-care (01) ==
LOC: ORWHC2ENDO 11:12 → 5NMEDONC 15:33 → ORWHC2ENDO 15:44 → UNDOADMOB 15:44 → 5NMEDONC 15:44 → UNDODISOB 01-12 12:20 → ORWHC2ENDO 01-12 12:20
PROVIDERS: ATTEND Internal Medicine Critical Care Medicine
DX: J98.2 Interstitial emphysema (principal); J96.01 Acute respiratory failure with hypoxia; E11.9 Type 2 diabetes mellitus without complications; K21.9 Gastro-esophageal reflux disease without esophagitis; E78.5 Hyperlipidemia, unspecified; I10 Essential (primary) hypertension; E03.9 Hypothyroidism, unspecified; F39 Unspecified mood [affective] disorder; Z20.822 Contact with and (suspected) exposure to COVID-19; Z86.16 Personal history of COVID-19; Z87.891 Personal history of nicotine dependence; Z79.82 Long term (current) use of aspirin; Z79.899 Other long term (current) drug therapy; Z79.890 Hormone replacement therapy
CPT/HCPCS: 96360; 96361 ×2; 96372; 94640 ×3; 94760; 93005 ×2; 87798 ×3; 87496; 87498; 87529; 88104; 88108; 88305; 89050; 87502; 87634; 87070; 87205; 87116; 87102; 87206; 87635; 71045; 71046; 31628; 31623; 31624; J2250; J0330; J0461; J2001; J3010; J2704